=== PATIENT | female | born 1975 | race Caucasian/White ===

== ENCOUNTER 2017-07-07 18:21 | Emergency (ER) | payer SELFPAY ==
[2017-07-07 18:35] VITALS: BP 134/68
[2017-07-07] MEDS ORDERED: PREDNISONE 20 MG TABLET PO ONE (19:13)
[2017-07-07] MEDS ORDERED: IPRATROPIUM/ALBUTEROL 0.5-2.5 MG/3 ML AMPUL NEB ONE ×3 (19:13)
[2017-07-07 19:25] LABS: APPEARANCE,URINE SLIGHTLY-CLOUDY; BILIRUBIN,URINE SMALL (NEGATIVE); GLUCOSE, URINE NEGATIVE (NEGATIVE); KETONES,URINE TRACE mg/dL (NEGATIVE); LEUKOCYTE ESTERASE,URINE NEGATIVE (NEGATIVE); NITRITE,URINE POSITIVE (NEGATIVE); PROTEIN,URINE 100 mg/dL (NEGATIVE)
--- NOTE | 2017-07-07 20:16 | RADIOLOGY REPORT (SQ) ---
EXAM DESCRIPTION: CHEST PA/LAT COMPLETED DATE/TIME: 07/07/2017 8:01 pm REASON FOR STUDY: cough sob COMPARISON: None. EXAM PARAMETERS: NUMBER OF VIEWS: two views TECHNIQUE: Digital Frontal and Lateral radiographic views of the chest acquired. RADIATION DOSE: NA LIMITATIONS: none FINDINGS: LUNGS AND PLEURA: No opacities, masses or pneumothorax. No pleural effusion. MEDIASTINUM AND HILAR STRUCTURES: No masses or contour abnormalities. HEART AND VASCULAR STRUCTURES: Heart normal size. No evidence for failure. BONES: No acute findings. HARDWARE: None in the chest. OTHER: No other significant finding. IMPRESSION: NO SIGNIFICANT RADIOGRAPHIC FINDING IN THE CHEST. TECHNICAL DOCUMENTATION: JOB ID: [id number] [employer]- All Rights Reserved
[2017-07-07] MEDS ORDERED: ALBUTEROL SULFATE HFA (90 MCG/PUFF) 8 GM MDI (1 MDI/ER DISP) IH PRN (20:24)
[2017-07-07] MEDS ORDERED: CEPHALEXIN 500 MG CAPSULE PO ONE (20:24)
--- NOTE | 2017-07-07 20:25 | ER Document Report ---
ED General - General Chief Complaint: Congestion Stated Complaint: COUGH,CONGESTION,HEADACHE Time Seen by Provider: 07/07/17 19:09 Mode of Arrival: Ambulatory Information source: Patient Notes: 41-year-old smoker who was diagnosed with COPD in the past presents with complaints of shortness of breath wheezing whitish clear/greenish sputum. Patient also notes foul-smelling urine with burning on urination. Patient denies any fevers or chills. Denies any recent antibiotic or steroid use - HPI Onset: Yesterday Onset/Duration: Persistent Quality of pain: Burning Severity: Mild Pain Level: 1 Associated symptoms: Productive cough, Shortness of breath, Other Exacerbated by: Other - Urination Relieved by: Denies Similar symptoms previously: Yes Recently seen / treated by doctor: Yes - Related Data Allergies/Adverse Reactions: ciprofloxacin [From Cipro HC] Allergy (Verified 07/07/17 18:24) hydrocortisone [From Cipro HC] Allergy (Verified 07/07/17 18:24) Penicillins Allergy (Verified 07/07/17 18:24) Past Medical History - Social History Smoking Status: Current Every Day Smoker Cigarette use (# per day): Yes Chew tobacco use (# tins/day): No Smoking Education Provided: Yes - Patient counselled regarding cessation for 4 minutes Frequency of alcohol use: None Drug Abuse: None Family History: Reviewed & Not Pertinent Patient has suicidal ideation: No Patient has homicidal ideation: No Renal/ Medical History: Denies: Hx Peritoneal Dialysis Past Surgical History: Reports: Hx Tubal Ligation Review of Systems - Review of Systems Notes: REVIEW OF SYSTEMS: CONSTITUTIONAL : Denies fever, chills, or sweats. Denies recent illness. EENT: Denies eye, ear, throat, or mouth pain or symptoms. Denies nasal or sinus congestion or discharge. Denies throat, tongue, or mouth swelling or difficulty swallowing. CARDIOVASCULAR: Denies chest pain. Denies palpitations or racing or irregular heart beat. Denies ankle edema. RESPIRATORY: D admits to cough wheezing shortness of breath GASTROINTESTINAL: Denies abdominal pain or distention. Denies nausea, vomiting , or diarrhea. Denies blood in vomitus, stools, or per rectum. Denies black, tarry stools. Denies constipation. GENITOURINARY: Admits to burning on urination FEMALE GENITOURINARY: Denies vaginal bleeding, heavy or abnormal periods, irregular periods. Denies vaginal discharge or odor. MUSCULOSKELETAL: Denies back or neck pain or stiffness. Denies joint pain or swelling. SKIN: Denies rash, lesions or sores. HEMATOLOGIC : Denies easy bruising or bleeding. LYMPHATIC: Denies swollen, enlarged glands. NEUROLOGICAL: Denies confusion or altered mental status. Denies passing out or loss of consciousness. Denies dizziness or lightheadedness. Denies headache. Denies weakness or paralysis or loss of use of either side. Denies problems with gait or speech. Denies sensory loss, numbness, or tingling. Denies seizures. PSYCHIATRIC: Denies anxiety or stress. Denies depression, suicidal ideation, or homicidal ideation. ALL OTHER SYSTEMS REVIEWED AND NEGATIVE. PHYSICAL EXAMINATION: GENERAL: Well-appearing, well-nourished and in no acute distress. HEAD: Atraumatic, normocephalic. EYES: Pupils equal round and reactive to light, extraocular movements intact, conjunctiva are normal. ENT: Nares patent, oropharynx clear without exudates. Moist mucous membranes. NECK: Normal range of motion, supple without lymphadenopathy LUNGS: Coarse inspiratory expiratory wheezing all throughout no respiratory distress HEART: Regular rate and rhythm without murmurs ABDOMEN: Soft, nontender, nondistended abdomen. No guarding, no rebound. No masses appreciated. Female : deferred Musculoskeletal: Normal range of motion, no pitting or edema. No cyanosis. NEUROLOGICAL: Cranial nerves grossly intact. Normal speech, normal gait. Normal sensory, motor exams PSYCH: Normal mood, normal affect. SKIN: Warm, Dry, normal turgor, no rashes or lesions noted. Dictation was performed using [employer] voice recognition software Physical Exam - Vital signs Vitals: Temp Pulse Resp BP Pulse Ox 98.4 F 59 L 18 134/68 H 95 07/07/17 18:34 07/07/17 18:34 07/07/17 18:34 07/07/17 18:34 07/07/17 18:34 Course - Re-evaluation Re-evalutation: 07/07/17 20:44 Patient's urinalysis is consistent with a urinary tract infection, patient will be started on Keflex, she was given 3 DuoNeb's note significant improvement in her breathing, she does still have some wheezing which is to be expected, she will be discharged home with steroids and albuterol inhaler for home. Patient instructed to follow-up with primary care physician for reevaluation or to return immediately if there are any other concerns After performing a Medical Screening Examination, I estimate there is LOW risk for ACUTE CORONARY SYNDROME, PULMONARY EMBOLI, RESPIRATORY FAILURE, SEPSIS OR MENINGITIS, thus I consider the discharge disposition reasonable. I have reevaluated this patient multiple times and no significant life threatening changes are noted. The patient and I have discussed the diagnosis and risks, and we agree with discharging home with close follow-up. We also discussed returning to the Emergency Department immediately if new or worsening symptoms occur. We have discussed the symptoms which are most concerning (e.g., changing or worsening pain, trouble swallowing or breathing, neck stiffness, fever) that necessitate immediate return. - Vital Signs Vital signs: Temp Pulse Resp BP Pulse Ox 98.4 F 59 L 18 134/68 H 95 07/07/17 18:34 07/07/17 18:34 07/07/17 18:34 07/07/17 18:34 07/07/17 18:34 - Laboratory Laboratory results interpreted by me: 07/07/17 19:00 Urine Protein 100 H Urine Ketones TRACE H Urine Nitrite POSITIVE H Urine Bilirubin SMALL H Urine Urobilinogen 2.0 H Urine Ascorbic Acid 20 H - Diagnostic Test Radiology reviewed: Image reviewed, Reports reviewed - COPD exacerbation Discharge - Discharge Clinical Impression: COPD exacerbation UTI (urinary tract infection) Qualifiers: Urinary tract infection type: acute cystitis Hematuria presence: without hematuria Qualified Code(s): N30.00 - Acute cystitis without hematuria Condition: Stable Disposition: HOME, SELF-CARE Instructions: Chronic Obstructive Lung Disease ([facility]), Urinary Tract Infection ( [facility]) Additional Instructions: Follow up with your physician tomorrow for further care or return to the ED IMMEDIATELY if symptoms worsen or new concerns occur. If you cannot afford to follow up with your primary care physician a list of low cost clinics have been provided at the end of your discharge papers as well. Prescriptions: Cephalexin Monohydrate [Keflex 500 mg Capsule] 500 mg PO BID 5 Days capsule Prednisone [Deltasone 20 mg Tablet] 3 tab PO DAILY 5 Days tablet Forms: Return to Work
== END 2017-07-07 20:32 | disposition home or self-care (01) ==
LOC: ER 18:21
DX: J44.1 Chronic obstructive pulmonary disease with (acute) exacerbation (principal); N30.00 Acute cystitis without hematuria; R09.89 Other specified symptoms and signs involving the circulatory and respiratory systems; F17.210 Nicotine dependence, cigarettes, uncomplicated; Z88.3 Allergy status to other anti-infective agents; Z88.0 Allergy status to penicillin; Z98.51 Tubal ligation status
CPT/HCPCS: 99406; 94640 ×2; 99283; 81001; 87804; 71020; J7512; J3490; J7620

== ENCOUNTER 2017-07-15 02:23 | Emergency (ER) | payer SELFPAY ==
[2017-07-15] MEDS ORDERED: BENZONATATE 100 MG CAPSULE PO ONE (02:54)
[2017-07-15] MEDS ORDERED: NORMAL SALINE 1000 ML 1,000 ML IV ONE (02:54)
[2017-07-15 03:48] LABS: ABSOLUTE LYMPHOCYTES (AUTO) 2.3 10^3/uL (0.5-4.7); ABSOLUTE MONOCYTES (AUTO) 0.6 10^3/uL (0.1-1.4); ABSOLUTE NEUT (AUTO) 5.8 10^3/uL (1.7-8.2); BASOPHILS % (AUTO) 0.2 % (0-2); EOSINOPHILS % (AUTO) 0.2 % (0-6); HEMATOCRIT 41.3 % (36.0-47.0); HEMOGLOBIN 13.7 g/dL (12.0-15.5); LYMPHOCYTES % (AUTO) 26.5 % (13-45); MEAN CORPUSCULAR HEMOGLOBIN 28.4 pg (27.0-33.4); MEAN CORPUSCULAR HGB CONC 33.1 g/dL (32.0-36.0); MEAN CORPUSCULAR VOLUME 86 fl (80-97); PLATELET COUNT 393 10^3/uL (150-450); RED BLOOD COUNT 4.81 10^6/uL (3.72-5.28); RED CELL DISTRIBUTION WIDTH 13.6 % (11.5-14.0); SEGMENTED NEUTROPHILS % (AUTO) 66.1 % (42-78); TOTAL CELLS COUNTED % (AUTO) 100 %; WHITE BLOOD COUNT 8.7 10^3/uL (4.0-10.5)
--- NOTE | 2017-07-15 03:48 | ER Document Report ---
ED General - General Chief Complaint: Breathing Difficulty Stated Complaint: SHORTNESS OF BREATH Time Seen by Provider: 07/15/17 02:46 Notes: Patient is a 41-year-old female with a past medical history of COPD, continues to smoke, who presents with ongoing intermittent shortness of breath, coughing, and lightheadedness. Patient also reports that she has had diarrhea for the past 2 days since starting on antibiotics for possible urinary tract infection. She reports that she came in today due to concerns of persistent lightheadedness while at work. Nothing improves or worsens her symptoms. She denies any chest pain, syncope, fever, hemoptysis, unilateral leg swelling, history of DVT or pulmonary embolus, or any use of estrogen. She has not seen her primary care doctor regarding today's concerns. TRAVEL OUTSIDE OF THE [place] IN LAST 30 DAYS: No - Related Data Allergies/Adverse Reactions: ciprofloxacin [From Cipro HC] Allergy (Verified 07/07/17 18:24) hydrocortisone [From Cipro HC] Allergy (Verified 07/07/17 18:24) Penicillins Allergy (Verified 07/07/17 18:24) Past Medical History - General Information source: Patient - Social History Smoking Status: Current Every Day Smoker Chew tobacco use (# tins/day): No Frequency of alcohol use: Social Drug Abuse: None Family History: Reviewed & Not Pertinent Patient has suicidal ideation: No Patient has homicidal ideation: No Renal/ Medical History: Denies: Hx Peritoneal Dialysis Past Surgical History: Reports: Hx Tubal Ligation Review of Systems - Review of Systems Notes: Constitutional: Negative for fever. Positive for lightheadedness HENT: Negative for sore throat. Eyes: Negative for visual changes. Cardiovascular: Negative for chest pain. Respiratory: Positive for shortness of breath. Gastrointestinal: Negative for abdominal pain, vomiting or diarrhea. Genitourinary: Negative for dysuria. Musculoskeletal: Negative for back pain. Skin: Negative for rash. Neurological: Negative for headaches, weakness or numbness. 10 point ROS negative except as marked above and in HPI. Physical Exam - Vital signs Vitals: Temp Pulse Resp BP Pulse Ox 98.4 F 77 16 128/80 H 99 07/15/17 02:30 07/15/17 02:30 07/15/17 02:30 07/15/17 02:30 07/15/17 02:30 Interpretation: Normal Notes: PHYSICAL EXAMINATION: GENERAL: Well-appearing, well-nourished and in no acute distress. HEAD: Atraumatic, normocephalic. EYES: Pupils equal round and reactive to light, extraocular movements intact, sclera anicteric, conjunctiva are normal. ENT: nares patent, oropharynx clear without exudates. Moderately dry mucous membranes. NECK: Normal range of motion, supple without lymphadenopathy LUNGS: Breath sounds clear to auscultation bilaterally and equal. Faint expiratory wheezing no wheezes rales or rhonchi. HEART: Regular rate and rhythm without murmurs ABDOMEN: Soft, nontender, normoactive bowel sounds. No guarding, no rebound. No masses appreciated. EXTREMITIES: Normal range of motion, no pitting or edema. No cyanosis. NEUROLOGICAL: No focal neurological deficits. Moves all extremities spontaneously and on command. PSYCH: Normal mood, normal affect. SKIN: Warm, Dry, normal turgor, no rashes or lesions noted. Course - Re-evaluation Re-evalutation: 07/15/17 03:46 Patient presents with a clinical history and exam most consistent with an acute viral bronchitis. Patient is overall well in appearance without tachypnea, hypoxemia, tachycardia, or difficulty with ambulation. Breath sounds are clear bilaterally. No fever. Patient does have additional signs of upper respiratory infection including nasal congestion, sore throat, and sinus pressure. Patient did also complain of some lightheadedness, near syncope. Labs and chest x-ray were therefore obtained. EKG without any ischemic changes or abnormal findings. Labs unremarkable. Chest x-ray remains clear. At this time will discharge with return precautions and follow-up recommendations. Verbal discharge instructions given a the bedside and opportunity for questions given. Medication warnings reviewed. Patient is in agreement with this plan and has verbalized understanding of return precautions and the need for primary care follow-up in the next 24-72 hours. - Vital Signs Vital signs: Temp Pulse Resp BP Pulse Ox 98.4 F 77 16 128/80 H 99 07/15/17 02:30 07/15/17 02:30 07/15/17 02:30 07/15/17 02:30 07/15/17 02:30 - Laboratory Result Diagrams: 07/15/17 03:30 07/15/17 03:30 - Diagnostic Test Radiology reviewed: Image reviewed, Reports reviewed Radiology results interpreted by me: 07/15/17 03:45 Chest x-ray: No acute infiltrate or pneumothorax - EKG Interpretation by Me Additional EKG results interpreted by me: 07/15/17 03:45 Normal sinus rhythm. Rate 60. No ST elevations or depressions. QTC is 408. Discharge - Discharge Clinical Impression: Lightheadedness Acute bronchitis Qualifiers: Bronchitis organism: unspecified organism Qualified Code(s): J20.9 - Acute bronchitis, unspecified Condition: Good Disposition: HOME, SELF-CARE Additional Instructions: You were seen for symptoms most consistent with bronchitis. This can take up to 12 weeks to fully resolve. This is generally due to a viral infection. Please follow-up with your primary doctor in the next 2-3 days. Return if you develop worsening cough, vomiting, fever >100.4, pass out, begin coughing blood, or have any other symptoms that are concerning to you. Please use the medications prescribed today as directed. Prescriptions: Benzonatate [Tessalon Perles 100 mg Capsule] 100 mg PO Q8HP PRN #40 capsule PRN Reason:
[2017-07-15 03:51] LABS: ANION GAP 10 (5-19); BLOOD UREA NITROGEN 13 mg/dL (7-20); CALCIUM 9.7 mg/dL (8.4-10.2); CARBON DIOXIDE 27 mmol/L (22-30); CHLORIDE 107 mmol/L (98-107); GLUCOSE 95 mg/dL (75-110); POTASSIUM 3.9 mmol/L (3.6-5.0)
[2017-07-15 05:04] VITALS: BP 110/67
--- NOTE | 2017-07-15 08:07 | RADIOLOGY REPORT (SQ) ---
EXAM DESCRIPTION: CHEST SINGLE VIEW COMPLETED DATE/TIME: 07/15/2017 3:00 am REASON FOR STUDY: sob COMPARISON: 07/07/2017. EXAM PARAMETERS: NUMBER OF VIEWS: One view. TECHNIQUE: Single frontal radiographic view of the chest acquired. RADIATION DOSE: NA LIMITATIONS: None. FINDINGS: LUNGS AND PLEURA: No opacities, masses or pneumothorax. No pleural effusion. MEDIASTINUM AND HILAR STRUCTURES: No masses. Contour normal. HEART AND VASCULAR STRUCTURES: Heart normal in size. Normal vasculature. BONES: No acute findings. HARDWARE: None in the chest. OTHER: No other significant finding. IMPRESSION: NO ACUTE RADIOGRAPHIC FINDING IN THE CHEST. TECHNICAL DOCUMENTATION: JOB ID: [id number] [employer]- All Rights Reserved
--- NOTE | 2017-07-15 09:32 | EKG REPORT ---
SEVERITY:- NORMAL ECG - SINUS RHYTHM : Confirmed by: Ruby Tanner 15-Jul-2017 09:31:38
== END 2017-07-15 05:03 | disposition home or self-care (01) ==
LOC: ER 02:23
DX: J20.9 Acute bronchitis, unspecified (principal); J44.9 Chronic obstructive pulmonary disease, unspecified; F17.200 Nicotine dependence, unspecified, uncomplicated; Z88.6 Allergy status to analgesic agent; Z88.0 Allergy status to penicillin; Z98.51 Tubal ligation status
CPT/HCPCS: 93005; 99285; 96360; 36415; 85025; 80048; 71045; 93010; J7030

== ENCOUNTER 2017-12-24 12:38 | Emergency (ER) | payer SELFPAY ==
[2017-12-24 14:04] LABS: APPEARANCE,URINE SLIGHTLY-CLOUDY; BILIRUBIN,URINE NEGATIVE (NEGATIVE); CALCIUM OXALATE CRYSTALS,URINE MODERATE /HPF; COLOR,URINE YELLOW; GLUCOSE, URINE NEGATIVE (NEGATIVE); KETONES,URINE NEGATIVE (NEGATIVE); LEUKOCYTE ESTERASE,URINE NEGATIVE (NEGATIVE); NITRITE,URINE NEGATIVE (NEGATIVE); PROTEIN,URINE NEGATIVE (NEGATIVE); URINE SPECIFIC GRAVITY 1.019
[2017-12-24] MEDS ORDERED: PHENAZOPYRIDINE HCL 200 MG TABLET PO ONE (14:43)
--- NOTE | 2017-12-24 14:47 | ER Document Report ---
ED GI/ - General Chief Complaint: Urinary Problem Stated Complaint: FLANK PAIN Time Seen by Provider: 12/24/17 13:33 Mode of Arrival: Ambulatory Information source: Patient Notes: 41-year-old female presents to ED for complaint of urinary frequency and urgency. She states she has pain with urination since last night. She denies any vaginal discomfort or pelvic pain. TRAVEL OUTSIDE OF THE [place] IN LAST 30 DAYS: No - HPI Patient complains to provider of: Other - Urinary frequency urgency and burning with urination Onset: Yesterday Timing/Duration: Gradual Quality of pain: Burning Severity at maximum: Moderate Severity in ED: Mild, Moderate Pain Level: 3 Location: Other - Pain with urination Vaginal bleeding (Compared to normal period): None LMP: 2 weeks ago Associated symptoms: Urinary frequency, Urinary urgency, Other Exacerbated by: Other - Urination Relieved by: Denies Similar symptoms previously: Yes Recently seen / treated by doctor: No - Related Data Allergies/Adverse Reactions: ciprofloxacin [From Cipro HC] Allergy (Verified 12/24/17 12:39) hydrocortisone [From Cipro HC] Allergy (Verified 12/24/17 12:39) Penicillins Allergy (Verified 12/24/17 12:39) Past Medical History - General Information source: Patient - Social History Smoking Status: Current Every Day Smoker Cigarette use (# per day): Yes - Pack per day Chew tobacco use (# tins/day): No Smoking Education Provided: Yes - 4 minutes Frequency of alcohol use: None Drug Abuse: None Occupation: Police Chief Deputy Lives with: Friend Family History: Reviewed & Not Pertinent Patient has suicidal ideation: No Patient has homicidal ideation: No Pulmonary Medical History: Reports: None EENT Medical History: Reports: None Neurological Medical History: Reports: None Endocrine Medical History: Reports: Other - Hypoglycemia Renal/ Medical History: Reports: None Malignancy Medical History: Reports: None GI Medical History: Reports: None Musculoskeltal Medical History: Reports None Skin Medical History: Reports None Psychiatric Medical History: Reports: Hx Anxiety Traumatic Medical History: Reports: None Infectious Medical History: Reports: None Past Surgical History: Reports: Hx Tubal Ligation Review of Systems - Review of Systems Constitutional: No symptoms reported EENT: No symptoms reported Cardiovascular: No symptoms reported Respiratory: No symptoms reported Gastrointestinal: No symptoms reported Genitourinary: Burning, Frequency, Urgency Female Genitourinary: No symptoms reported Musculoskeletal: No symptoms reported Skin: No symptoms reported Hematologic/Lymphatic: No symptoms reported Neurological/Psychological: No symptoms reported -: Yes All other systems reviewed and negative Physical Exam - Vital signs Vitals: Temp Pulse Resp BP Pulse Ox 98.7 F 87 20 112/66 99 12/24/17 12:53 12/24/17 12:53 12/24/17 12:53 12/24/17 12:53 12/24/17 12:53 Interpretation: Normal - General General appearance: Appears well, Alert - HEENT Head: Normocephalic, Atraumatic Eyes: Normal Pupils: PERRL - Respiratory Respiratory status: No respiratory distress Chest status: Nontender Breath sounds: Normal Chest palpation: Normal - Cardiovascular Rhythm: Regular Heart sounds: Normal auscultation Murmur: No - Abdominal Inspection: Normal Distension: No distension Bowel sounds: Normal Tenderness: Nontender Organomegaly: No organomegaly - Back Back: Normal, Nontender - Extremities General upper extremity: Normal inspection, Nontender, Normal color, Normal ROM , Normal temperature General lower extremity: Normal inspection, Nontender, Normal color, Normal ROM , Normal temperature, Normal weight bearing. No: Kelly's sign - Neurological Neuro grossly intact: Yes Cognition: Normal Orientation: AAOx4 Astrid Coma Scale Eye Opening: Spontaneous [place] Coma Scale Verbal: Oriented [place] Coma Scale Motor: Obeys Commands [place] Coma Scale Total: 15 Speech: Normal Motor strength normal: LUE, RUE, LLE, RLE Sensory: Normal - Psychological Associated symptoms: Normal affect, Normal mood - Skin Skin Temperature: Warm Skin Moisture: Dry Skin Color: Normal Course - Re-evaluation Re-evalutation: 12/24/17 21:08 Urinary lab results discussed with patient. Patient has no vaginal discharge no pelvic pain. She states she just had burning with urination. Patient was encouraged to increase fluids and given a prescription for Pyridium. Patient instructed to follow-up with primary doctor and get a repeat urine in about a week. Urine was sent for culture. - Vital Signs Vital signs: Temp Pulse Resp BP Pulse Ox 98.4 F 71 16 117/75 98 12/24/17 15:24 12/24/17 15:24 12/24/17 15:24 12/24/17 15:24 12/24/17 15:24 - Laboratory Laboratory results interpreted by me: 12/24/17 13:25 Urine Urobilinogen 2.0 H Discharge - Discharge Clinical Impression: Pain with urination Condition: Stable Disposition: HOME, SELF-CARE Instructions: Family Physicians / Practices Additional Instructions: Was seen today for pain with urination. Your urine does not show a urinary tract infection at this time. I will send the urine for a culture to ensure that it is not positive. URINARY ANESTHETIC AGENT: You have been given a medication (Pyridium) for urinary tract discomfort. This medicine numbs the lining of the bladder and urethra, resulting in less pain, burning, and urgency. You may take it as needed, according to instructions. When the symptoms resolve, you can stop this medication (be sure to continue any other medications the doctor has given you). This medicine turns the urine a dark orange. It may stain underwear. Occasionally, it can cause nausea. Return for evaluation if there are any unexpected effects, such as itching, hives, or shortness of breath. FOLLOW-UP CARE: If you have been referred to a physician for follow-up care, call the physician s office for an appointment as you were instructed or within the next two days. If you experience worsening or a significant change in your symptoms, notify the physician immediately or return to the Emergency Department at any time for re-evaluation. Prescriptions: Phenazopyridine HCl [Pyridium] 200 mg PO TID #10 tablet Forms: Return to Work
[2017-12-24 15:25] VITALS: BP 117/75
== END 2017-12-24 15:24 | disposition home or self-care (01) ==
LOC: ER 12:38
DX: R30.0 Dysuria (principal); R35.0 Frequency of micturition; R39.15 Urgency of urination; F17.210 Nicotine dependence, cigarettes, uncomplicated; Z71.6 Tobacco abuse counseling; Z88.1 Allergy status to other antibiotic agents; Z88.0 Allergy status to penicillin; Z88.8 Allergy status to other drugs, medicaments and biological substances
CPT/HCPCS: 99406; 99284; 87086; 81025; 87088; 81001; J3490

== ENCOUNTER 2018-11-14 17:51 | Emergency (ER) | payer SELFPAY ==
[2018-11-14] MEDS ORDERED: NORMAL SALINE 1000 ML 1,000 ML IV ONE (18:30)
--- NOTE | 2018-11-14 18:34 | ER Document Report ---
ED Medical Screen (RME) - General Chief Complaint: Fever Stated Complaint: FEVER Time Seen by Provider: 11/14/18 18:18 Mode of Arrival: Ambulatory Information source: Patient TRAVEL OUTSIDE OF THE [place] IN LAST 30 DAYS: No - HPI Patient complains to provider of: FEVER Notes: 11/14/18 18:32 Patient here with complaints of fever. Patient is a IV heroin user. States that she is in the process of trying to get off and is been using just an affair 1 to maintain until she can get into rehab. She states that she shot up last evening. A few hours later she started to feel like she was getting a fever. She states that she had a temperature of 104 and then was in and out of consciousness for 4 to 6 hours. Fever seems to have resolved today. She denies any chest pain or shortness of breath but has had a cough for a while. She also complains of some swelling and pain to the right forearm. No abscess. She also fell and injured her posterior pelvis few days ago. Exam Nontoxic, no distress. Some mild swelling and tenderness to the volar aspect of the right forearm with no significant swelling or redness. No mass. Normal pulse and sensation distally. Lungs clear and equal throughout. Tachycardia. No murmur. Ecchymosis to the left posterior pelvic area. Plan CBC, CMP, lactic acid, blood culture, urine, urine culture, chest x-ray, pelvis x-ray, venous Doppler of the right upper extremity. Normal saline bolus. An initial examination was made on the patient as part of the triage process, and it was determined a more comprehensive evaluation was necessary. Initial labs were ordered and patient was transferred to another provider in the ED who assumed care and finished evaluation and plan. - Related Data Allergies/Adverse Reactions: ciprofloxacin [From Cipro HC] Allergy (Verified 11/14/18 17:52) hydrocortisone [From Cipro HC] Allergy (Verified 11/14/18 17:52) Penicillins Allergy (Verified 11/14/18 17:52) Past Medical History - Social History Chew tobacco use (# tins/day): No Frequency of alcohol use: Social Drug Abuse: Other Renal/ Medical History: Denies: Hx Peritoneal Dialysis Psychiatric Medical History: Reports: Hx Anxiety Past Surgical History: Reports: Hx Tubal Ligation Physical Exam - Vital signs Vitals: Temp Pulse Resp BP Pulse Ox 98.2 F 115 H 16 129/86 H 97 11/14/18 18:01 11/14/18 18:01 11/14/18 18:01 11/14/18 18:01 11/14/18 18:01 Course - Vital Signs Vital signs: Temp Pulse Resp BP Pulse Ox 98.2 F 115 H 16 129/86 H 97 11/14/18 18:01 11/14/18 18:01 11/14/18 18:01 11/14/18 18:01 11/14/18 18:01
--- NOTE | 2018-11-14 19:05 | RADIOLOGY REPORT (SQ) ---
EXAM DESCRIPTION: PELVIS AP COMPLETED DATE/TIME: 11/14/2018 6:55 pm REASON FOR STUDY: FALL COMPARISON: None. NUMBER OF VIEWS: One view TECHNIQUE: AP Pelvis LIMITATIONS: None. FINDINGS: MINERALIZATION: Normal. HIPS: No acute fracture or dislocation. No worrisome bone lesions. PELVIS AND SACRUM: No acute fracture or dislocation. No worrisome bone lesions. PUBIS AND ISCHIUM: No acute fracture. LOWER LUMBAR SPINE: No significant findings as visualized. SOFT TISSUES: No findings. OTHER: No other significant finding. IMPRESSION: No fracture identified. COMMENT: Pelvic fractures are often occult on plain radiographs. If strong clinical suspicion for f racture, recommend CT or MR. TECHNICAL DOCUMENTATION: JOB ID: [id number] [employer]- All Rights Reserved Reading location - IP/workstation name: [employer]
--- NOTE | 2018-11-14 19:10 | RADIOLOGY REPORT (SQ) ---
EXAM DESCRIPTION: CHEST 2 VIEWS COMPLETED DATE/TIME: 11/14/2018 6:55 pm REASON FOR STUDY: FEVER COMPARISON: 07/07/2017 TECHNIQUE: Frontal and lateral radiographic views of the chest acquired. NUMBER OF VIEWS: Two view. LIMITATIONS: None. FINDINGS: LUNGS AND PLEURA: No pneumothorax. No consolidation or pleural effusion. MEDIASTINUM AND HILAR STRUCTURES: Stable. HEART AND VASCULAR STRUCTURES: Stable. BONES: No acute findings. HARDWARE: None in the chest. OTHER: No other significant finding. IMPRESSION: NO ACUTE FINDINGS. TECHNICAL DOCUMENTATION: JOB ID: [id number] [employer]- All Rights Reserved Reading location - IP/workstation name: [email or web address]
[2018-11-14 19:28] LABS: ABSOLUTE EOSINOPHILS # (AUTO) 0.1 10^3/uL (0.0-0.6); ABSOLUTE LYMPHOCYTES (AUTO) 2.2 10^3/uL (0.5-4.7); ABSOLUTE MONOCYTES (AUTO) 0.5 10^3/uL (0.1-1.4); ABSOLUTE NEUT (AUTO) 5.8 10^3/uL (1.7-8.2); BASOPHILS % (AUTO) 0.3 % (0-2); EOSINOPHILS % (AUTO) 1.1 % (0-6); HEMATOCRIT 43.4 % (36.0-47.0); HEMOGLOBIN 14.1 g/dL (12.0-15.5); LYMPHOCYTES % (AUTO) 25.7 % (13-45); MEAN CORPUSCULAR HEMOGLOBIN 26.9 pg (27.0-33.4); MEAN CORPUSCULAR HGB CONC 32.4 g/dL (32.0-36.0); MEAN CORPUSCULAR VOLUME 83 fl (80-97); MONOCYTES % (AUTO) 5.8 % (3-13); PLATELET COUNT 305 10^3/uL (150-450); RED BLOOD COUNT 5.23 10^6/uL (3.72-5.28); RED CELL DISTRIBUTION WIDTH 15.6 % (11.5-14.0); SEGMENTED NEUTROPHILS % (AUTO) 67.1 % (42-78); TOTAL CELLS COUNTED % (AUTO) 100 %; WHITE BLOOD COUNT 8.6 10^3/uL (4.0-10.5)
[2018-11-14 19:30] LABS: APPEARANCE,URINE CLOUDY; BILIRUBIN,URINE NEGATIVE (NEGATIVE); CALCIUM OXALATE CRYSTALS,URINE TOO NUMEROUS TO CNT /HPF; COLOR,URINE AMBER; GLUCOSE, URINE NEGATIVE (NEGATIVE); KETONES,URINE NEGATIVE (NEGATIVE); LEUKOCYTE ESTERASE,URINE NEGATIVE (NEGATIVE); NITRITE,URINE NEGATIVE (NEGATIVE); PROTEIN,URINE NEGATIVE (NEGATIVE); URINE SPECIFIC GRAVITY 1.023
[2018-11-14 19:38] LABS: ALANINE AMINOTRANSFERASE 43 U/L (9-52); ALBUMIN 4.3 g/dL (3.5-5.0); ALKALINE PHOSPHATASE 97 U/L (38-126); ANION GAP 11 (5-19); ASPARTATE AMINO TRANSFERASE 48 U/L (14-36); BILIRUBIN,DIRECT 0.3 mg/dL (0.0-0.4); BILIRUBIN,TOTAL 0.5 mg/dL (0.2-1.3); BLOOD UREA NITROGEN 7 mg/dL (7-20); CALCIUM 9.4 mg/dL (8.4-10.2); CARBON DIOXIDE 28 mmol/L (22-30); CHLORIDE 103 mmol/L (98-107); GLUCOSE 91 mg/dL (75-110); POTASSIUM 3.6 mmol/L (3.6-5.0); SODIUM 141.8 mmol/L (137-145); TOTAL PROTEIN 8.3 g/dL (6.3-8.2)
[2018-11-14] MEDS ORDERED: CEFTRIAXONE 2 GM/D5W RTU 2 GM/50 ML RTUPB IV ONE (19:57)
--- NOTE | 2018-11-14 20:01 | RADIOLOGY REPORT (SQ) ---
EXAM DESCRIPTION: VENOUS UNILATERAL UPPER COMPLETED DATE/TIME: 11/14/2018 7:46 pm REASON FOR STUDY: RIGHT ARM PAIN COMPARISON: None. TECHNIQUE: Dynamic and static nesbitt scale and color images acquired of the right arm venous system. S elected spectral images acquired with additional compression and augmentation maneuvers. The contrala teral subclavian vein and internal jugular vein were also imaged. Images stored on PACS. LIMITATIONS: None. FINDINGS: INTERNAL JUGULAR VEIN: Normal phasicity, compression, augmentation. No visualized echogeni c material on nesbitt scale. No defects on color images. Comparison opposite side normal. SUBCLAVIAN VEIN: Normal compression, augmentation. No visualized echogenic material on nesbitt scale. No defects on color images. AXILLARY VEIN: Normal compression, augmentation. No visualized echogenic material on nesbitt scale. No d efects on color images. BRACHIAL VEIN: Normal compression, augmentation. No visualized echogenic material on nesbitt scale. No d efects on color images. BASILIC VEIN: Normal compression, augmentation. No visualized echogenic material on nesbitt scale. No de fects on color images. CEPHALIC VEIN: Normal compression, augmentation. No visualized echogenic material on nesbitt scale. No d efects on color images. OTHER: Radial and ulnar venous systems demonstrate no echogenic material grayscale. No defects on co samantha imaging. Normal augmentation. CONTRALATERAL SUBCLAVIAN VEIN AND INTERNAL JUGULAR VEIN: Normal phasicity, compression and augmentation. No visualized echogenic material on nesbitt scale. No de fects on color images. IMPRESSION: NO EVIDENCE DVT OR SVT RIGHT ARM. TECHNICAL DOCUMENTATION: JOB ID: [id number]- All Rights Reserved Reading location - IP/workstation name: [email or web address]
--- NOTE | 2018-11-14 20:03 | ER Document Report ---
ED General - General Chief Complaint: Fever Stated Complaint: FEVER Time Seen by Provider: 11/14/18 18:18 Mode of Arrival: Ambulatory Information source: Patient TRAVEL OUTSIDE OF THE [place] IN LAST 30 DAYS: No - HPI Patient complains to provider of: Fever, right forearm lump, tachycardia, flulike symptoms Onset: Yesterday Onset/Duration: Sudden Severity: Severe Pain Level: 4 Associated symptoms: Body/muscle aches, Chills, Fever Exacerbated by: Denies Relieved by: Denies Similar symptoms previously: No Recently seen / treated by doctor: No Notes: 42-year-old female with history of heroin addiction abuse says she shot up yesterday and blacked out for a few hours. Since then has had fevers up to 104 and flulike illness including generalized malaise and muscle aches. She denies adamantly having any chest pain or shortness of breath. She has a spot in her right forearm that she is concerned could be a blood clot. - Related Data Allergies/Adverse Reactions: ciprofloxacin [From Cipro HC] Allergy (Verified 11/14/18 17:52) hydrocortisone [From Cipro HC] Allergy (Verified 11/14/18 17:52) Penicillins Allergy (Verified 11/14/18 17:52) Past Medical History - General Information source: Patient - Social History Smoking Status: Current Every Day Smoker Chew tobacco use (# tins/day): No Frequency of alcohol use: Social Drug Abuse: Other Family History: Reviewed & Not Pertinent Patient has suicidal ideation: No Patient has homicidal ideation: No Renal/ Medical History: Denies: Hx Peritoneal Dialysis Psychiatric Medical History: Reports: Hx Anxiety Past Surgical History: Reports: Hx Tubal Ligation Review of Systems - Review of Systems Notes: Constitutional: Positive fevers and chills positive malaise. EENT: No eye redness. No eye pain. No ear pain. No sore throat. Cardiovascular: No chest pain. No palpitations. Respiratory: No cough. No shortness of breath. No respiratory distress. Gastrointestinal: No abdominal pain. No nausea, vomiting, or diarrhea. Genitourinary: Atraumatic. No lesions. No pain. No discharge. Musculoskeletal: Atraumatic. No swelling. No deformities. Positive myalgias Skin: No rash or lesions. Lymphatic: No swollen lymph nodes. Neurologic: No headache. No syncope. Psychiatric: No suicidal or homicidal ideation. Physical Exam - Vital signs Vitals: Temp Pulse Resp BP Pulse Ox 98.2 F 115 H 16 129/86 H 97 11/14/18 18:01 11/14/18 18:01 11/14/18 18:01 11/14/18 18:01 11/14/18 18:01 - Notes Notes: General: Well-developed, well-nourished. In no acute distress. Non-toxic appearing. Cardiac: Well-perfused. Regular rate and rhythm. No murmurs, rubs, or gallops. Pulmonary: No respiratory distress. No cyanosis. Bilateral lung fiels are clear to auscultation. Abdominal: Non-distended. Non-rigid. Bowels sounds are present in all four quadrants. No guarding or rebound. HEENT: Head is atraumatic. Conjunctivae not reddened. No tearing. PERRL. EOMI. Orbits atraumatic. No periorbital swelling or erythema. Oropharynx is without erythema, swelling, or exudates. Dry mucous membranes Neck: Supple. No adenopathy. No meningismus. Dermatologic: Warm with good turgor. No rash. Atraumatic. Chest: Atraumatic. No chest wall tenderness to palpation. Musculoskeletal: The right upper extremity is examined. There is a fibrotic area around 1 of the veins of the mid antecubital region. There is no erythema. No swelling. Questionable phlebitis. Genitourinary: Examination deferred Neurologic: No gross neurologic deficits. Psychiatric: Normal mood. Course - Re-evaluation Re-evalutation: 11/14/18 20:01 Patient's labs are normal. She is slightly tachycardic and does have some dry mucous membranes on exam today. Blood cultures have been drawn. She has no white count. 11/14/18 20:02 We are going give her some IV fluids hip and this will help with her tachycardia. Her blood cultures are drawn. I will give her some Rocephin here and discharge her home and have her return in 24 hours that we can recheck her and correlate with her blood cultures. 11/14/18 20:03 Also reassured to see that her lactic acid is normal. 11/14/18 21:09 Fluids are in. Heart rate is better. Blood pressure better. Will discharge patient know she needs to return 24 hours for recheck and blood culture check. - Vital Signs Vital signs: Temp Pulse Resp BP Pulse Ox 97.9 F 71 16 116/84 100 11/14/18 20:57 11/14/18 20:57 11/14/18 20:57 11/14/18 20:57 11/14/18 20:57 - Laboratory Result Diagrams: 11/14/18 18:40 11/14/18 18:40 Laboratory results interpreted by me: 11/14/18 11/14/18 11/14/18 18:40 18:40 18:40 MCH 26.9 L RDW 15.6 H AST 48 H Total Protein 8.3 H Urine Urobilinogen 2.0 H Discharge - Discharge Clinical Impression: Flu-like symptoms, History of intravenous drug abuse Fever Qualifiers: Fever type: unspecified Qualified Code(s): R50.9 - Fever, unspecified Condition: Good Disposition: HOME, SELF-CARE Instructions: Acetaminophen, Blood Test Information (OM), Fever (OM), Ibuprofen (General) (OM), Repeat Blood Test (OM) Additional Instructions: Continue to treat YOUR fevers at home with Tylenol and ibuprofen. You have been given an antibiotic and will protect to for the next 24 hours. Please be sure to return to emergency department in approximately 24 hours so that we can reassess your situation and check your blood cultures. If you get significantly worse symptoms or you start having intractable vomiting or any other concerning symptoms please return to the emergency department before 24 hours. Referrals: TAMIKO GOLDBERG PA-C [Emergency Provider] - Follow up tomorrow
[2018-11-14 21:00] VITALS: BP 116/84
== END 2018-11-14 21:18 | disposition home or self-care (01) ==
LOC: ER 17:51
DX: R50.9 Fever, unspecified (principal); F11.20 Opioid dependence, uncomplicated; R00.0 Tachycardia, unspecified; R53.81 Other malaise; M79.10 Myalgia, unspecified site; R29.898 Other symptoms and signs involving the musculoskeletal system; F17.200 Nicotine dependence, unspecified, uncomplicated; Z88.1 Allergy status to other antibiotic agents; Z88.0 Allergy status to penicillin
CPT/HCPCS: 99284; 96361; 96365; 36415; 87040; 87086; 85025; 80053; 81001; 83605; 93971; 71046; 72170; J7030; J0696

== ENCOUNTER 2019-05-22 17:47 | Inpatient (IN) | payer SELFPAY ==
[2019-05-22] MEDS ORDERED: NALOXONE HCL INJ 2 MG/2 ML DISP.SYRIN IV ONE ×2 (18:09→21:30)
[2019-05-22] MEDS ORDERED: RINGERS SOLUTION,LACTATED 1,000 ML IV ONE (18:09)
[2019-05-22 18:25] LABS: ABSOLUTE BASOPHILS # (AUTO) 0.1 10^3/uL (0.0-0.2); ABSOLUTE EOSINOPHILS # (AUTO) 0.2 10^3/uL (0.0-0.6); ABSOLUTE LYMPHOCYTES (AUTO) 3.3 10^3/uL (0.5-4.7); ABSOLUTE NEUT (AUTO) 5.3 10^3/uL (1.7-8.2); BASOPHILS % (AUTO) 0.6 % (0-2); EOSINOPHILS % (AUTO) 1.5 % (0-6); HEMATOCRIT 42.2 % (36.0-47.0); HEMOGLOBIN 14.1 g/dL (12.0-15.5); LYMPHOCYTES % (AUTO) 33.7 % (13-45); MEAN CORPUSCULAR HEMOGLOBIN 28.8 pg (27.0-33.4); MEAN CORPUSCULAR HGB CONC 33.4 g/dL (32.0-36.0); MEAN CORPUSCULAR VOLUME 86 fl (80-97); MONOCYTES % (AUTO) 10.5 % (3-13); PLATELET COUNT 436 10^3/uL (150-450); RED BLOOD COUNT 4.89 10^6/uL (3.72-5.28); RED CELL DISTRIBUTION WIDTH 14.9 % (11.5-14.0); SEGMENTED NEUTROPHILS % (AUTO) 53.7 % (42-78); TOTAL CELLS COUNTED % (AUTO) 100 %; WHITE BLOOD COUNT 9.9 10^3/uL (4.0-10.5)
[2019-05-22 18:46] LABS: ACETAMINOPHEN < 10 ug/mL (10-30); ALBUMIN 4.4 g/dL (3.5-5.0); ALCOHOL < 10 mg/dL (NONE DETECTED); ALKALINE PHOSPHATASE 83 U/L (38-126); ANION GAP 7 (5-19); ASPARTATE AMINO TRANSFERASE 30 U/L (14-36); BILIRUBIN,DIRECT 0.2 mg/dL (0.0-0.4); BILIRUBIN,TOTAL 0.4 mg/dL (0.2-1.3); BLOOD UREA NITROGEN 12 mg/dL (7-20); CALCIUM 9.3 mg/dL (8.4-10.2); CARBON DIOXIDE 31 mmol/L (22-30); CHLORIDE 102 mmol/L (98-107); GLUCOSE 89 mg/dL (75-110); POTASSIUM 4.4 mmol/L (3.6-5.0); SALICYLATE < 1.0 mg/dL (2.0-20.0); TOTAL PROTEIN 8.2 g/dL (6.3-8.2)
[2019-05-22 19:22] LABS: APPEARANCE,URINE CLEAR; BILIRUBIN,URINE NEGATIVE (NEGATIVE); COLOR,URINE STRAW; GLUCOSE, URINE NEGATIVE (NEGATIVE); KETONES,URINE NEGATIVE (NEGATIVE); LEUKOCYTE ESTERASE,URINE NEGATIVE (NEGATIVE); NITRITE,URINE NEGATIVE (NEGATIVE); PROTEIN,URINE NEGATIVE (NEGATIVE); URINE SPECIFIC GRAVITY 1.008; UROBILINOGEN,URINE NEGATIVE mg/dL (<2.0)
[2019-05-22 19:41] LABS: URINE AMPHETAMINES SCREEN UNCONFIRMED POSITIVE; URINE BARBITURATES SCREEN NEGATIVE; URINE BENZODIAZEPINES SCREEN NEGATIVE; URINE COCAINE SCREEN NEGATIVE; URINE MARIJUANA (THC) SCREEN NEGATIVE; URINE METHADONE SCREEN NEGATIVE; URINE PHENCYCLIDINE SCREEN NEGATIVE
[2019-05-22] MEDS ORDERED: NORMAL SALINE 500 ML with NALOXONE HCL 2 MG IV PRN ×6 (21:46→23:16)
[2019-05-22] MEDS ORDERED: NORMAL SALINE 1000 ML 1,000 ML IV PRN (21:53)
[2019-05-22] MEDS ORDERED: ENOXAPARIN SODIUM INJ 40 MG/0.4 ML DISP.SYRIN SUBCUT ONE (22:30)
[2019-05-22] MEDS ORDERED: NALOXONE HCL INJ 2 MG/2 ML DISP.SYRIN ONE (22:38)
[2019-05-22] MEDS ORDERED: NALOXONE HCL INJ 2 MG/2 ML DISP.SYRIN IV PRN (23:17)
--- NOTE | 2019-05-23 08:03 | CRITICAL CARE ADMISSION REPORT ---
HPI Date:: 05/22/19 Time:: 20:00 Reason for ICU Reason:: Heroin intoxication. Narcan drip. Low RR HPI: This patient is a 43 yo heroin addict who claims to use everyday. Obtained heroin from a new dealer so it may have been laced with another substance or have stronger potency. She is brought to the ED at first protecting her airway but having a labile mental status. She received doses of narcan before being converted to a drip. When seen in ED3, she was somewhat arousable, very sleepy with the same concerns ofd protecting her airway. Therefore a drip was started a nd she was placed in the ICU. When awake, if we ascertain that this is an accidental OD,which I think it is, then she can go home if she is otherwise stable, ambulatory, eating and drinking. History obtained from:: ED MD EMS records - Diagnosis/Plan (1) Heroin abuse Is this a current diagnosis for this admission?: Yes Plan: Chronic and the reason for her difficulties. Since she is so sleepy nothing else is known (2) Accidental overdose of heroin Qualifiers: Encounter type: initial encounter Qualified Code(s): T40.1X1A - Poisoning by heroin, accidental (unintentional), initial encounter Is this a current diagnosis for this admission?: Yes Plan: She is awake enough to protect airway and narcan is off. (3) Acute respiratory insufficiency Is this a current diagnosis for this admission?: Yes Plan: Resolved. RR is still 8-12. Past Medical History Pulmonary Medical History: Reports: Pneumonia Past Surgical History Past Surgical History: Reports: Tubal Ligation Social/Family History - Social History Smoking Status: Current Every Day Smoker Cigarettes Packs Per Day: 1 Number of Years Smokin Frequency of Alcohol Use: None Drugs: Heroin Hx Prescription Drug Abuse: No - Family History Family History: Reviewed & Not Pertinent - Medication/Allergies Home Medications: No Home Medications 05/22/19 Allergies/Adverse Reactions: ciprofloxacin [From Cipro HC] Allergy (Verified 11/14/18 17:52) hydrocortisone [From Cipro HC] Allergy (Verified 11/14/18 17:52) Penicillins Allergy (Verified 11/14/18 17:52) Review of Systems ROS unobtainable: Due to mental status Physical Exam Vital Signs: Temp Pulse Resp BP Pulse Ox 98.6 F 83 16 107/62 97 05/23/19 03:55 05/22/19 23:10 05/23/19 06:06 05/23/19 06:06 05/23/19 06:06 Intake & Output 05/22/19 05/23/19 05/24/19 06:59 06:59 06:59 Intake Total 1000 Output Total 1050 Balance -50 Weight 65.1 kg Weight/Height Weight 65.1 kg Height 5 ft 8 in General appearance: PRESENT: no acute distress, thin Head exam: PRESENT: atraumatic, normocephalic Eye exam: PRESENT: conjunctiva pink, EOMI, PERRLA. ABSENT: scleral icterus Ear exam: PRESENT: normal external ear exam Mouth exam: PRESENT: moist, tongue midline Respiratory exam: PRESENT: clear to auscultation serena, decreased breath sounds, unlabored Cardiovascular exam: PRESENT: RRR. ABSENT: diastolic murmur, rubs, systolic murmur GI/Abdominal exam: PRESENT: normal bowel sounds, soft. ABSENT: distended, guarding, mass, organolmegaly, rebound, tenderness Extremities exam: PRESENT: full ROM Musculoskeletal exam: PRESENT: normal inspection Neurological exam: PRESENT: altered Laboratory/Radiographs Laboratory Results: 05/22/19 17:56 05/22/19 17:56 05/22/19 05/22/19 05/22/19 17:56 17:56 17:56 WBC 9.9 RBC 4.89 Hgb 14.1 Hct 42.2 MCV 86 MCH 28.8 MCHC 33.4 RDW 14.9 H Plt Count 436 Seg Neutrophils % 53.7 Sodium 140.2 Potassium 4.4 Chloride 102 Carbon Dioxide 31 H Anion Gap 7 BUN 12 Creatinine 0.65 Est GFR ( Amer) > 60 Glucose 89 Calcium 9.3 Magnesium 2.0 Total Bilirubin 0.4 AST 30 Alkaline Phosphatase 83 Total Protein 8.2 Albumin 4.4 Serum HCG, Qual NEGATIVE Urine Color Urine Appearance Urine pH Ur Specific [place] Urine Protein Urine Glucose (UA) Urine Ketones Urine Blood Urine Nitrite Ur Leukocyte Esterase Urine WBC (Auto) 05/22/19 19:05 WBC RBC Hgb Hct MCV MCH MCHC RDW Plt Count Seg Neutrophils % Sodium Potassium Chloride Carbon Dioxide Anion Gap BUN Creatinine Est GFR ( Amer) Glucose Calcium Magnesium Total Bilirubin AST Alkaline Phosphatase Total Protein Albumin Serum HCG, Qual Urine Color STRAW Urine Appearance CLEAR Urine pH 8.0 Ur Specific [place] 1.008 Urine Protein NEGATIVE Urine Glucose (UA) NEGATIVE Urine Ketones NEGATIVE Urine Blood NEGATIVE Urine Nitrite NEGATIVE Ur Leukocyte Esterase NEGATIVE Urine WBC (Auto) 1 All labs, radiographs, diagnostic studies and EKGs were personally reviewed: Yes In addition, reports of radiographic and diagnostic studies were read: Yes Critical Time Critical Time (minutes): 35 -: The care of a critically ill patient is dynamic. This note represents a static moment in the admission process. orders and treatments may be given simulataneously and urgentl, and time is not access service representative of the treatment process. This patient requires Critical Care secondary to life threating organ or limb dysfunction. Without the need for Critical Care services, the patient is at risk for increasid mortality and morbidity.
[2019-05-23] MEDS ORDERED: ENOXAPARIN SODIUM INJ 40 MG/0.4 ML DISP.SYRIN SUBCUT SCH (10:00)
[2019-05-23 15:09] VITALS: BP 135/82
--- NOTE | 2019-05-23 15:34 | PDOC DISCHARGE SUMMARY ---
Impression - Admit/DC Date/PCP Admission Date/Primary Care Provider: 05/22/19 22:03 Discharge Date: 05/23/19 - Discharge Diagnosis (1) Heroin abuse Is this a current diagnosis for this admission?: Yes (2) Accidental overdose of heroin Is this a current diagnosis for this admission?: Yes (3) Acute respiratory insufficiency Is this a current diagnosis for this admission?: Yes (4) Accidental overdose Is this a current diagnosis for this admission?: Yes (5) Heroin abuse Is this a current diagnosis for this admission?: Yes - Assessment Summary: This pt is a 43 yo woman, a known heroin addict, who obtained heroin from a different dealer that had it cut with unknown substance but more than likely it was too strong. She responded to narcan boluses but ended up on a drip. Therefore an ICU admission. She has woken, is eating and walking about her room and ready for discharge. - Additional Information Resuscitation Status: Full Code Discharge Diet: As Tolerated, Regular Discharge Activity: Activity As Tolerated Referrals: LOCAL,NO [NO LOCAL MD] - Home Medications: No Home Medications 05/22/19 History of Present Illiness History of Present Illness: Heroin OD requiring Narcan drip. Now awake, non intentional Hospital Course Hospital Course: She came off the narcan lead mobile developer of 05/23 and has not needed any more. Is fully awake, eating and walking well Physical Exam Vital Signs: Temp Pulse Resp BP Pulse Ox 98.6 F 83 19 135/82 H 97 05/23/19 15:06 05/23/19 15:06 05/23/19 15:06 05/23/19 15:06 05/23/19 15:06 Intake & Output 05/22/19 05/23/19 05/24/19 06:59 06:59 06:59 Intake Total 1000 783 Output Total 1050 400 Balance -50 383 Weight 65.1 kg General appearance: PRESENT: no acute distress, well-developed, well-nourished Head exam: PRESENT: atraumatic, normocephalic Eye exam: PRESENT: conjunctiva pink, EOMI, PERRLA. ABSENT: scleral icterus Ear exam: PRESENT: normal external ear exam Mouth exam: PRESENT: moist, tongue midline Respiratory exam: PRESENT: clear to auscultation serena. ABSENT: rales, rhonchi, wheezes Cardiovascular exam: PRESENT: RRR. ABSENT: diastolic murmur, rubs, systolic murmur Pulses: PRESENT: normal dorsalis pedis pul Vascular exam: PRESENT: normal capillary refill GI/Abdominal exam: PRESENT: normal bowel sounds, soft. ABSENT: distended, guarding, mass, organolmegaly, rebound, tenderness Rectal exam: PRESENT: deferred Extremities exam: PRESENT: full ROM Musculoskeletal exam: PRESENT: ambulatory, full ROM, normal inspection Neurological exam: PRESENT: alert, awake, oriented to person, oriented to place, oriented to time, oriented to situation, CN II-XII grossly intact. ABSENT: motor sensory deficit Skin exam: PRESENT: dry, intact, warm. ABSENT: cyanosis, rash Results Laboratory Results: WBC 9.9 10^3/uL (4.0-10.5) 05/22/19 17:56 RBC 4.89 10^6/uL (3.72-5.28) 05/22/19 17:56 Hgb 14.1 g/dL (12.0-15.5) 05/22/19 17:56 Hct 42.2 % (36.0-47.0) 05/22/19 17:56 MCV 86 fl (80-97) 05/22/19 17:56 MCH 28.8 pg (27.0-33.4) 05/22/19 17:56 MCHC 33.4 g/dL (32.0-36.0) 05/22/19 17:56 RDW 14.9 % (11.5-14.0) H 05/22/19 17:56 Plt Count 436 10^3/uL (150-450) 05/22/19 17:56 Lymph % (Auto) 33.7 % (13-45) 05/22/19 17:56 [place] % (Auto) 10.5 % (3-13) 05/22/19 17:56 Eos % (Auto) 1.5 % (0-6) 05/22/19 17:56 Baso % (Auto) 0.6 % (0-2) 05/22/19 17:56 Absolute Neuts (auto) 5.3 10^3/uL (1.7-8.2) 05/22/19 17:56 Absolute Lymphs (auto) 3.3 10^3/uL (0.5-4.7) 05/22/19 17:56 Absolute Monos (auto) 1.0 10^3/uL (0.1-1.4) 05/22/19 17:56 Absolute Eos (auto) 0.2 10^3/uL (0.0-0.6) 05/22/19 17:56 Absolute Basos (auto) 0.1 10^3/uL (0.0-0.2) 05/22/19 17:56 Seg Neutrophils % 53.7 % (42-78) 05/22/19 17:56 Sodium 140.2 mmol/L (137-145) 05/22/19 17:56 Potassium 4.4 mmol/L (3.6-5.0) 05/22/19 17:56 Chloride 102 mmol/L (98-107) 05/22/19 17:56 Carbon Dioxide 31 mmol/L (22-30) H 05/22/19 17:56 Anion Gap 7 (5-19) 05/22/19 17:56 BUN 12 mg/dL (7-20) 05/22/19 17:56 Creatinine 0.65 mg/dL (0.52-1.25) 05/22/19 17:56 Est GFR ( Amer) > 60 (>60) 05/22/19 17:56 Est GFR (MDRD) Non-Af > 60 (>60) 05/22/19 17:56 Glucose 89 mg/dL (75-110) 05/22/19 17:56 Calcium 9.3 mg/dL (8.4-10.2) 05/22/19 17:56 Magnesium 2.0 mg/dL (1.6-2.3) 05/22/19 17:56 Total Bilirubin 0.4 mg/dL (0.2-1.3) 05/22/19 17:56 Direct Bilirubin 0.2 mg/dL (0.0-0.4) 05/22/19 17:56 Neonat Total Bilirubin Not Reportable 05/22/19 17:56 Neonat Direct Bilirubin Not Reportable 05/22/19 17:56 Neonat Indirect Bili Not Reportable 05/22/19 17:56 AST 30 U/L (14-36) 05/22/19 17:56 ALT 25 U/L (<35) 05/22/19 17:56 Alkaline Phosphatase 83 U/L (38-126) 05/22/19 17:56 Total Protein 8.2 g/dL (6.3-8.2) 05/22/19 17:56 Albumin 4.4 g/dL (3.5-5.0) 05/22/19 17:56 Serum HCG, Qual NEGATIVE (NEGATIVE) 05/22/19 17:56 Urine Color STRAW 05/22/19 19:05 Urine Appearance CLEAR 05/22/19 19:05 Urine pH 8.0 (5.0-9.0) 05/22/19 19:05 Ur Specific [place] 1.008 05/22/19 19:05 Urine Protein NEGATIVE mg/dL (NEGATIVE) 05/22/19 19:05 Urine Glucose (UA) NEGATIVE mg/dL (NEGATIVE) 05/22/19 19:05 Urine Ketones NEGATIVE mg/dL (NEGATIVE) 05/22/19 19:05 Urine Blood NEGATIVE (NEGATIVE) 05/22/19 19:05 Urine Nitrite NEGATIVE (NEGATIVE) 05/22/19 19:05 Urine Bilirubin NEGATIVE (NEGATIVE) 05/22/19 19:05 Urine Urobilinogen NEGATIVE mg/dL (<2.0) 05/22/19 19:05 Ur Leukocyte Esterase NEGATIVE (NEGATIVE) 05/22/19 19:05 Urine WBC (Auto) 1 /HPF 05/22/19 19:05 Squamous Epi Cells Auto 2 /HPF 05/22/19 19:05 Urine Ascorbic Acid NEGATIVE (NEGATIVE) 05/22/19 19:05 Salicylates < 1.0 mg/dL (2.0-20.0) L 05/22/19 17:56 Urine Opiates Screen UNCONFIRMED POSITIVE 05/22/19 19:05 Urine Methadone Screen NEGATIVE 05/22/19 19:05 Acetaminophen < 10 ug/mL (10-30) L 05/22/19 17:56 Ur Barbiturates Screen NEGATIVE 05/22/19 19:05 Ur Phencyclidine Scrn NEGATIVE 05/22/19 19:05 Ur Amphetamines Screen UNCONFIRMED POSITIVE 05/22/19 19:05 U Benzodiazepines Scrn NEGATIVE 05/22/19 19:05 Urine Cocaine Screen NEGATIVE 05/22/19 19:05 U Marijuana (THC) Screen NEGATIVE 05/22/19 19:05 Serum Alcohol < 10 mg/dL (NONE DETECTED) 05/22/19 17:56 Plan Health Concerns: Obvious heroin use which has been for years Plan of Treatment: Stop by attending NA meetings Goals: Abstinence and sobriety. Stroke Is this a Stroke Patient?: No Acute Heart Failure - Is this a Heart Failure Patient?: No
--- NOTE | 2019-05-23 23:21 | EKG REPORT ---
SEVERITY:- NORMAL ECG - SINUS RHYTHM : Confirmed by: Ruby Tanner 23-May-2019 23:20:49
== END 2019-05-23 15:30 | disposition home or self-care (01) | DRG 918 ==
LOC: ER 17:47 → EH 22:03 → ICU 23:00
PROVIDERS: ADMIT Anesthesiology; ATTEND Anesthesiology
DX: T40.1X1A Poisoning by heroin, accidental (unintentional), initial encounter (principal); F11.229 Opioid dependence with intoxication, unspecified; J70.8 Respiratory conditions due to other specified external agents; R06.89 Other abnormalities of breathing; F17.210 Nicotine dependence, cigarettes, uncomplicated; Y92.89 Other specified places as the place of occurrence of the external cause
CPT/HCPCS: 36415; 80053; 80307; 81001; 83735; 84703; 85025; 93005; 93010; 96361; 96374; 96376; 99285; J1650; J2310; J7030; J7040; J7120

== ENCOUNTER 2019-06-12 16:56 | Inpatient (IN) | payer SELFPAY ==
[2019-06-12] MEDS ORDERED: DIPH/PERTUSS(ACELL)/TETANUS VAC/PF 0.5 ML SYR (>=10YO) IM ONE (17:07)
[2019-06-12] MEDS ORDERED: ACETAMINOPHEN 325 MG TABLET PO ONE (17:07)
[2019-06-12] MEDS ORDERED: VANCOMYCIN HCL INJ 1000 MG VIAL IV ONE (17:08)
--- NOTE | 2019-06-12 17:11 | ER Document Report ---
ED Medical Screen (RME) - General Chief Complaint: Abscess Stated Complaint: ABSCESS/RIGHT WRIST,HAND, FEVER Time Seen by Provider: 06/12/19 17:02 Mode of Arrival: Wheelchair Information source: Patient Notes: Patient presents with right hand and wrist pain and swelling for the past week. Patient is an IV drug user and does admit to injecting in the right wrist last week. Patient reports subjective fever at home. Patient with erythema swelling and an area of fluctuance worrisome for abscess to the wrist area. Patient swelling extends to the upper arm. I have greeted and performed a rapid initial assessment of this patient. A comprehensive ED assessment and evaluation of the patient, analysis of test results and completion of the medical decision making process will be conducted by additional ED providers. TRAVEL OUTSIDE OF THE [place] IN LAST 30 DAYS: No - Related Data Allergies/Adverse Reactions: ciprofloxacin [From Cipro HC] Allergy (Verified 06/12/19 17:04) hydrocortisone [From Cipro HC] Allergy (Verified 06/12/19 17:04) Penicillins Allergy (Verified 06/12/19 17:04) Past Medical History - Social History Chew tobacco use (# tins/day): No Frequency of alcohol use: None Drug Abuse: Heroin, Methamphetamine Pulmonary Medical History: Reports: Hx Pneumonia Renal/ Medical History: Denies: Hx Peritoneal Dialysis Psychiatric Medical History: Reports: Hx Anxiety Past Surgical History: Reports: Hx Tubal Ligation Physical Exam - Vital signs Vitals: Temp Pulse Resp BP Pulse Ox 99 F 74 16 114/65 96 06/12/19 17:03 06/12/19 17:03 06/12/19 17:03 06/12/19 17:03 06/12/19 17:03 - General General appearance: Alert Notes: Right upper extremity tenderness and swelling, significant swelling to right wrist and hand with pointing abscess over the dorsum of the right wrist. Course - Vital Signs Vital signs: Temp Pulse Resp BP Pulse Ox 99 F 74 16 114/65 96 06/12/19 17:03 06/12/19 17:03 06/12/19 17:03 06/12/19 17:03 06/12/19 17:03
--- NOTE | 2019-06-12 17:40 | RADIOLOGY REPORT (SQ) ---
EXAM DESCRIPTION: HAND RIGHT 3 VIEWS COMPLETED DATE/TIME: 06/12/2019 5:21 pm REASON FOR STUDY: r hand/wrist swelling, hx iv drug use COMPARISON: None. EXAM PARAMETERS: NUMBER OF VIEWS: Three views. TECHNIQUE: AP, lateral and oblique radiographic images acquired of the right hand. LIMITATIONS: None. FINDINGS: MINERALIZATION: Normal. BONES: No acute fracture or dislocation. No worrisome bone lesions. JOINTS: No effusions. SOFT TISSUES: Diffuse soft tissue swelling is seen of the wrist and hand. No retained radiopaque for eign body is demonstrated. OTHER: No other significant finding. IMPRESSION: Diffuse soft tissue swelling without underlying osseous injury or demonstrated retained radiopaque foreign body. TECHNICAL DOCUMENTATION: JOB ID: [id number] [employer]- All Rights Reserved Reading location - IP/workstation name: [email or web address]
[2019-06-12] MEDS ORDERED: KETAMINE HCL INJ 500 MG/10 ML VIAL IV ONE (17:51)
--- NOTE | 2019-06-12 17:58 | ER Document Report ---
ED General <SERAFIN FIELD - Last Filed: 06/12/19 18:51> - General Mode of Arrival: Wheelchair TRAVEL OUTSIDE OF THE [place] IN LAST 30 DAYS: No <KATARINA HOLT - Last Filed: 06/12/19 20:01> - General Chief Complaint: Abscess Stated Complaint: ABSCESS/RIGHT WRIST,HAND, FEVER Time Seen by Provider: 06/12/19 17:02 - HPI Notes: Patient is a 43-year-old female with history of IV drug abuse, hepatitis c, and heart murmur who presents complaining of pain, swelling, possible infection to the site that she injected on her right wrist a little over a week ago. Patient states that she has been having swelling and significant pain to her entire right upper extremity since then along with fever and chills. Patient states that she started having cough, hoarseness of her voice, some chest pain that began yesterday. She has been urinating normally and having normal bowel movements. Denies any headache, neck pain, sore throat, palpitations, syncope, shortness of breath, wheeze, dyspnea, abdominal pain, nausea/vomiting/diarrhea, urinary retention, dysuria, hematuria. (KATARINA HOLT) - Related Data Allergies/Adverse Reactions: ciprofloxacin [From Cipro HC] Allergy (Verified 06/12/19 17:04) hydrocortisone [From Cipro HC] Allergy (Verified 06/12/19 17:04) Penicillins Allergy (Verified 06/12/19 17:04) Past Medical History - General Information source: Patient - Social History Smoking Status: Current Every Day Smoker Chew tobacco use (# tins/day): No Frequency of alcohol use: None Drug Abuse: Heroin, Methamphetamine Family History: Reviewed & Not Pertinent Patient has suicidal ideation: No Patient has homicidal ideation: No Pulmonary Medical History: Reports: Hx Pneumonia Renal/ Medical History: Denies: Hx Peritoneal Dialysis Psychiatric Medical History: Reports: Hx Anxiety Past Surgical History: Reports: Hx Tubal Ligation <KATARINA HOLT - Last Filed: 06/12/19 20:01> Review of Systems - Review of Systems -: Yes All other systems reviewed and negative <KATARINA HOLT - Last Filed: 06/12/19 20:01> Physical Exam <SERAFIN FIELD - Last Filed: 06/12/19 18:51> <KATARINA HOLT - Last Filed: 06/12/19 20:01> - Vital signs Vitals: Temp Pulse Resp BP Pulse Ox 99 F 74 16 114/65 96 06/12/19 17:03 06/12/19 17:03 06/12/19 17:03 06/12/19 17:03 06/12/19 17:03 - Notes Notes: Addendum patient was initially seen by mid-level provider and evaluated by me she presents with pain swelling her right hand for 1 week after injecting. She does report some tactile fevers. Exam she is got a large abscess over the dorsum of the hand with red streaks going up the arm. Patient will need incision and drainage. With a history of IV drug abuse and worried about adequate pain control so she will be sedated with ketamine. Benefits of the procedure were explained to the patient (SERAFIN FIELD) PHYSICAL EXAMINATION: GENERAL: Well-appearing, well-nourished and in no acute resp distress. Pt appears uncomfortable with her RUE and tearful. HEAD: Atraumatic, normocephalic. EYES: Pupils equal round and reactive to light, extraocular movements intact, sclera anicteric, conjunctiva are normal. ENT: Nares patent and without discharge. oropharynx clear without exudates. No tonsilar hypertrophy or erythema. Moist mucous membranes. NECK: Normal range of motion, supple without lymphadenopathy LUNGS: Breath sounds clear to auscultation bilaterally and equal. No wheezes rales or rhonchi. HEART: Regular rate and rhythm with murmur noted ABDOMEN: Soft, nontender, nondistended abdomen. No guarding, no rebound. No rmal bowel sounds present. No CVA tenderness bilaterally. Musculoskeletal: RUE: there is significant erythema/swelling to the RUE, worse at the wrist with fluctuant abscess present to the posterior wrist. The hand is also swollen, indurated, and erythemic. The RUE in entirety is warm. She also has tenderness to axillar and medial upper arm in area of suspected lymph nodes. Extremities: See above. No other cyanosis, clubbing, or edema b/l. Peripheral pulses 2+. Capillary refill less than 3 seconds. NEUROLOGICAL: Cranial nerves grossly intact. Normal speech, normal gait. Normal sensory, motor exams PSYCH: Normal mood, normal affect. SKIN: see above (KATARINA HOLT) Course - Laboratory Result Diagrams: 06/12/19 18:13 06/12/19 18:13 <SERAFIN FIELD - Last Filed: 06/12/19 18:51> - Laboratory Result Diagrams: 06/12/19 18:13 06/12/19 18:13 <KATARINA HOLT - Last Filed: 06/12/19 20:01> - Re-evaluation Re-evalutation: 06/12/19 17:58 Dr. Field was consulted immediately after my evaluation. We will perform I&D and get labs/imaging to further evaluate. We will perform I&D with ketamine sedation. Ultimate plan is admission. IV antibiotics ordered. 06/12/19 19:34 We did not need to perform ketamine sedation at this time. Local anesthetic with sensorcaine/lido combo provided with 100mg of fentanyl. Incision and drainage was performed successfully without any complications with packing placed. Wound culture was obtained. Wound dressing was applied. Patient is an afebrile, well-hydrated, 43-year-old female who presents with an extensive cellulitis to the right upper extremity with cough and chest pain. Vitals are acceptable. Patient is currently nontoxic-appearing. Labs are acceptable with an 11,000 white count. Cardiac work-up unremarkable thus far. IV antibiotics have been initiated. Patient we will place call to hospitalist for admission. 06/12/19 19:58 Dr. Angel accepted pt for admit. Dr. Field wanted flagyl added which has been ordered. (KATARINA HOLT) - Vital Signs Vital signs: Temp Pulse Resp BP Pulse Ox 99 F 74 22 H 110/68 99 06/12/19 17:03 06/12/19 17:03 06/12/19 19:46 06/12/19 19:46 06/12/19 19:46 - Laboratory Laboratory results interpreted by me: 06/12/19 06/12/19 06/12/19 18:13 18:13 18:13 WBC 11.0 H Hgb 11.9 L Hct 35.1 L RDW 15.0 H Carbon Dioxide 31 H Lactic Acid (Sepsis) 0.6 L Procedures - Incision and Drainage Right Wrist Type: Simple Anesthetic type: 1% Lidocaine, 0.25% Bupivacaine mL's of anesthetic: 5 Blade size: 11 I&D procedure: Chlorprep applied, Iodoform packing placed, Sterile dressing applied Incision Method: Incision made by scalpel Amount/type of drainage: moderate purulent <KATARINA HOLT - Last Filed: 06/12/19 20:01> Discharge <SERAFIN FIELD - Last Filed: 06/12/19 18:51> - Discharge Admitting Provider: Jeanne (Hospitalist) Unit Admitted: Medical Floor <KATARINA HOLT - Last Filed: 06/12/19 20:01> - Discharge Clinical Impression: Atypical chest pain, Cellulitis of right arm Injection site abscess Qualifiers: Encounter type: initial encounter Qualified Code(s): T80.29XA - Infection following other infusion, transfusion and therapeutic injection, initial encounter Condition: Stable Disposition: ADMITTED INPATIENT
[2019-06-12] MEDS ORDERED: BUPIVACAINE HCL 0.25% /EPINEPHRINE INJ/PF 30 ML SDV INJ ONE (18:12)
[2019-06-12] MEDS ORDERED: CEFTRIAXONE 1 GM/D5W RTU 1 GM/50 ML RTUPB IV ONE (18:30)
[2019-06-12 18:34] LABS: ABSOLUTE EOSINOPHILS # (AUTO) 0.2 10^3/uL (0.0-0.6); ABSOLUTE LYMPHOCYTES (AUTO) 2.4 10^3/uL (0.5-4.7); ABSOLUTE MONOCYTES (AUTO) 0.8 10^3/uL (0.1-1.4); ABSOLUTE NEUT (AUTO) 7.5 10^3/uL (1.7-8.2); BASOPHILS % (AUTO) 0.3 % (0-2); EOSINOPHILS % (AUTO) 1.7 % (0-6); HEMATOCRIT 35.1 % (36.0-47.0); HEMOGLOBIN 11.9 g/dL (12.0-15.5); LYMPHOCYTES % (AUTO) 22.3 % (13-45); MEAN CORPUSCULAR HEMOGLOBIN 28.8 pg (27.0-33.4); MEAN CORPUSCULAR HGB CONC 33.8 g/dL (32.0-36.0); MEAN CORPUSCULAR VOLUME 85 fl (80-97); MONOCYTES % (AUTO) 7.6 % (3-13); PLATELET COUNT 441 10^3/uL (150-450); RED BLOOD COUNT 4.13 10^6/uL (3.72-5.28); SEGMENTED NEUTROPHILS % (AUTO) 68.1 % (42-78); TOTAL CELLS COUNTED % (AUTO) 100 %
[2019-06-12] MEDS ORDERED: VANCOMYCIN HCL INJ 1000 MG VIAL ONE (18:41)
[2019-06-12] MEDS ORDERED: VANCOMYCIN HCL INJ 500 MG VIAL ONE (18:41)
[2019-06-12 19:02] LABS: ALBUMIN 3.9 g/dL (3.5-5.0); ALKALINE PHOSPHATASE 113 U/L (38-126); ANION GAP 9 (5-19); ASPARTATE AMINO TRANSFERASE 20 U/L (14-36); BILIRUBIN,DIRECT 0.2 mg/dL (0.0-0.4); BILIRUBIN,TOTAL 0.3 mg/dL (0.2-1.3); BLOOD UREA NITROGEN 8 mg/dL (7-20); CALCIUM 8.9 mg/dL (8.4-10.2); CARBON DIOXIDE 31 mmol/L (22-30); CHLORIDE 100 mmol/L (98-107); GLUCOSE 85 mg/dL (75-110); POTASSIUM 3.9 mmol/L (3.6-5.0); TOTAL PROTEIN 7.9 g/dL (6.3-8.2)
--- NOTE | 2019-06-12 19:10 | RADIOLOGY REPORT (SQ) ---
EXAM DESCRIPTION: CHEST SINGLE VIEW COMPLETED DATE/TIME: 06/12/2019 6:57 pm REASON FOR STUDY: CP, IV drug user, fever COMPARISON: 11/14/2018. EXAM PARAMETERS: NUMBER OF VIEWS: One view. TECHNIQUE: Single frontal radiographic view of the chest acquired. RADIATION DOSE: NA LIMITATIONS: None. FINDINGS: LUNGS AND PLEURA: No opacities, masses or pneumothorax. No pleural effusion. MEDIASTINUM AND HILAR STRUCTURES: No masses. Contour normal. HEART AND VASCULAR STRUCTURES: Heart normal in size. Normal vasculature. BONES: No acute findings. HARDWARE: None in the chest. OTHER: No other significant finding. IMPRESSION: NO ACUTE RADIOGRAPHIC FINDING IN THE CHEST. TECHNICAL DOCUMENTATION: JOB ID: [id number] [employer]- All Rights Reserved Reading location - IP/workstation name: [email or web address]
[2019-06-12] MEDS ORDERED: FENTANYL CITRATE INJ/PF 100 MCG/2 ML AMPUL ONE (19:25)
[2019-06-12] MEDS ORDERED: FENTANYL CITRATE INJ/PF 100 MCG/2 ML AMPUL IV ONE (19:27)
[2019-06-12] MEDS ORDERED: METRONIDAZOLE 500 MG/NS RTU 500 MG/100 ML RTUPB IV ONE (20:15)
--- NOTE | 2019-06-12 20:31 | PDOC H&P ---
History of Present Illness Admission Date/PCP: 06/12/19 20:12 No local PCP Patient complains of: Painful swelling right hand, wrist and forearm History of Present Illness: CRISTAL FIELD is a 43 year old female who presented to the emergency room with a one-week history of swelling and pain in her right upper extremity. She admits that a week ago she developed an area of redness, pain and swelling on her right wrist at a recent heroin injection site. The redness, pain and swelling have gradually increased to involve her right hand, wrist and distal forearm. She describes the pain as a constant throbbing pressure in her right wrist and hand without radiation. The pain is worsened by attempted use of the hand and having the hand in a dependent position. The pain is partially reliev ed by elevation of the hand and wrist. Associated with the increased swelling she has noted subjective fever with chills for the last 2 days. She also notes an accompanying hoarseness with laryngitis and a nonproductive cough with sharp chest pains over the last 24 hours. She denies other associated or accompanying signs and symptoms. She admits prior similar episodes due to infection of heroi n injection sites. She has not identified any additional aggravating or ameliorating factors for her right upper extremity pain. The emergency room she was found to have an abscess of the right wrist which was incised and drained. Patient was started on IV antibiotics, after cultures were obtained, and was subsequently admitted to the hospital for further evaluation and treatment. Past Medical History Cardiac Medical History: Denies: Coronary Artery Disease, Hypertension Pulmonary Medical History: Reports: Pneumonia Denies: Asthma, Chronic Obstructive Pulmonary Disease (COPD) EENT Medical History: Denies: Cataracts, Ears - Hearing aids Neurological Medical History: Denies: Hemorrhagic CVA, Ischemic CVA, Multiple Sclerosis, Seizures Endocrine Medical History: Denies: Diabetes Mellitus Type 1, Diabetes Mellitus Type 2, Hyperthyroidism, Hypothyroidism Renal/ Medical History: Denies: Chronic Kidney Disease, Nephrolithiasis Malignancy Medical History: Reports: None GI Medical History: Denies: Cirrhosis, Hepatitis Musculoskeltal Medical History: Denies: Arthritis, Gout Skin Medical History: Denies: Eczema, Psoriasis Psychiatric Medical History: Reports: Substance Abuse, Tobacco Dependency Denies: Alcohol Dependency Traumatic Medical History: Reports: None Hematology: Denies: Anemia, Bleeding Tendencies Infectious Medical History: Reports: None Past Surgical History Past Surgical History: Reports: Tubal Ligation Social History Information Source: Patient Lives with: Alone Smoking Status: Current Every Day Smoker Electronic Cigarette use?: No Frequency of Alcohol Use: None Hx Recreational Drug Use: Yes Drugs: Heroin Hx Prescription Drug Abuse: No - Advance Directive Resuscitation Status: Full Code Surrogate healthcare decision maker:: Sunshine Cortes Family History Family History: Malignancy. denies: CAD, DM, Hypertension Parental Family History Reviewed: Yes Children Family History Reviewed: No Sibling(s) Family History Reviewed.: Yes Medication/Allergy Home Medications: No Home Medications 05/22/19 Allergies/Adverse Reactions: ciprofloxacin [From Cipro HC] Allergy (Verified 06/12/19 17:04) hydrocortisone [From Cipro HC] Allergy (Verified 06/12/19 17:04) Penicillins Allergy (Verified 06/12/19 17:04) Review of Systems Constitutional: PRESENT: as per HPI, chills, fever(s) Eyes: ABSENT: visual disturbances, other - Eye pain Ears: ABSENT: hearing changes, other - Ear pain Nose, Mouth, and Throat: PRESENT: as per HPI, sore throat, other - Laryngitis. ABSENT: mouth pain Cardiovascular: PRESENT: as per HPI, chest pain - Sharp pain with cough. ABSENT: palpitations Respiratory: PRESENT: as per HPI, cough. ABSENT: dyspnea, sputum Gastrointestinal: ABSENT: abdominal pain, constipation, diarrhea, nausea, vomiting Genitourinary: ABSENT: dysuria, hematuria Musculoskeletal: ABSENT: back pain, joint swelling, muscle weakness Integumentary: PRESENT: as per HPI, wounds - Right upper extremity as per HPI. ABSENT: diaphoresis, pruritus, rash Neurological: ABSENT: confusion, convulsions, focal weakness, memory loss, syncope Psychiatric: ABSENT: anxiety, depression Endocrine: ABSENT: cold intolerance, heat intolerance Hematologic/Lymphatic: ABSENT: easy bleeding, easy bruising Allergic/Immunologic: ABSENT: seasonal rhinorrhea Physical Exam Vital Signs: Temp Pulse Resp BP Pulse Ox 99 F 74 11 L 115/71 98 06/12/19 17:03 06/12/19 17:03 06/12/19 20:01 06/12/19 20:01 06/12/19 20:01 Intake & Output 06/10/19 06/11/19 06/12/19 23:59 23:59 23:59 Intake Total 50 Balance 50 Weight 74.9 kg General appearance: PRESENT: no acute distress, cooperative Head exam: PRESENT: atraumatic, normocephalic Eye exam: PRESENT: conjunctiva pink. ABSENT: conjunctival injection, scleral icterus Ear exam: PRESENT: normal external ear exam. ABSENT: bleeding, drainage Mouth exam: PRESENT: dry mucosa, neck supple Neck exam: ABSENT: thyromegaly, tracheal deviation Respiratory exam: PRESENT: clear to auscultation serena, symmetrical, unlabored Cardiovascular exam: PRESENT: RRR. ABSENT: clicks, gallop, rubs Pulses: PRESENT: normal carotid pulses, normal dorsalis pedis pul Vascular exam: PRESENT: normal capillary refill. ABSENT: pallor GI/Abdominal exam: PRESENT: normal bowel sounds, soft Rectal exam: PRESENT: deferred Extremities exam: ABSENT: joint swelling, pedal edema Musculoskeletal exam: ABSENT: deformity, dislocation Neurological exam: PRESENT: alert, oriented to person, oriented to place, or iented to time, oriented to situation, CN II-XII grossly intact. ABSENT: motor sensory deficit Psychiatric exam: PRESENT: appropriate affect, normal mood Skin exam: PRESENT: dry, warm, other - Erythema and edema of the distal right forearm, right wrist and right hand and fingers with severe tenderness to palpation and movement. There is local induration involving the right wrist. Evidence of recent abscess incision and drainage noted with dressing present.. ABSENT: jaundice, rash, urticaria Results Laboratory Results: 06/12/19 18:13 06/12/19 18:13 06/12/19 06/12/19 06/12/19 18:13 18:13 18:13 WBC 11.0 H RBC 4.13 Hgb 11.9 L Hct 35.1 L MCV 85 MCH 28.8 MCHC 33.8 RDW 15.0 H Plt Count 441 Seg Neutrophils % 68.1 Sodium 139.7 Potassium 3.9 Chloride 100 Carbon Dioxide 31 H Anion Gap 9 BUN 8 Creatinine 0.67 Est GFR ( Amer) > 60 Glucose 85 Calcium 8.9 Total Bilirubin 0.3 AST 20 Alkaline Phosphatase 113 Total Protein 7.9 Albumin 3.9 Serum HCG, Qual NEGATIVE 06/12/19 18:13 Troponin I < 0.012 Impressions: Hand X-Ray 06/12/19 17:05 IMPRESSION: Diffuse soft tissue swelling without underlying osseous injury or demonstrated retained radiopaque foreign body. Chest X-Ray 06/12/19 17:42 IMPRESSION: NO ACUTE RADIOGRAPHIC FINDING IN THE CHEST. Assessment and Plan - Diagnosis (1) Injection site abscess Qualifiers: Encounter type: initial encounter Qualified Code(s): T80.29XA - Infection following other infusion, transfusion and therapeutic injection, initial encounter Is this a current diagnosis for this admission?: Yes (2) Cellulitis of right wrist Is this a current diagnosis for this admission?: Yes (3) Upper respiratory infection, acute Is this a current diagnosis for this admission?: Yes (4) Heroin abuse Is this a current diagnosis for this admission?: Yes (5) Tobacco use disorder, severe, dependence Is this a current diagnosis for this admission?: Yes - Plan Summary Summary: Patient is admitted to the medical floor where she will receive routine symptomatic and supportive cares. She will be treated with IV antibiotics utilizing vancomycin and meropenem initially until wound cultures are available. Her pain will be treated with morphine sulfate 3 to 7.5 mg IV every 2 hours on an as-needed basis using a sliding pain scale. She will utilize Robitussin 10 mL every 4 hours as needed cough. Daily CBCs and metabolic profiles will be obtained as part of her ongoing management. Smoking cessation is advised and counseled briefly at the bedside. A nicotine replacement patch is available for the patient's use, if desired. - Time Time Spent with patient: 15-24 minutes Smoking Cessation Education: 3 to 10 minutes Medications reviewed and adjusted accordingly: Yes Anticipated discharge: Home - Inpatient Certification Based on my medical assessment, after consideration of the patient's comorbidities, presenting symptoms, or acuity I expect that the services needed warrant INPATIENT care.: Yes I certify that my determination is in accordance with my understanding of Medicare's requirements for reasonable and necessary INPATIENT services [42 CFR 412.3e].: Yes Medical Necessity: Need Close Monitoring Due to Risk of Patient Decompensation, Need for Pain Control, Need for IV Antibiotics, Risk of Complication if Not Cared For in Hospital
[2019-06-12] MEDS ORDERED: PROMETHAZINE HCL INJ 25 MG/1 ML VIAL IV PRN (21:29)
[2019-06-12] MEDS ORDERED: MAGNESIUM HYDROXIDE SUSP 30 ML UDCUP PO PRN (21:29)
[2019-06-12] MEDS ORDERED: MAG HYDROX/AL HYDROX/SIMETH SUSP 30 ML UDCUP PO PRN (21:29)
[2019-06-12] MEDS ORDERED: LEVALBUTEROL HCL NEB 0.63 MG/3 ML AMPUL NEB PRN (21:29)
[2019-06-12] MEDS ORDERED: TEMAZEPAM 15 MG CAPSULE PO PRN (21:29)
[2019-06-12] MEDS ORDERED: MORPHINE SULFATE 10 MG/ML INJ IV PRN (21:32)
[2019-06-12] MEDS ORDERED: ACETAMINOPHEN 325 MG TABLET PO PRN (21:32)
[2019-06-12] MEDS ORDERED: NICOTINE 21 MG/24 HR PATCH.TD24 TD PRN (21:32)
[2019-06-12] MEDS ORDERED: HYDRALAZINE HCL INJ/PF 20 MG/1 ML SDV IV PRN (21:32)
[2019-06-12] MEDS ORDERED: VANCOMYCIN HCL INJ 1000 MG VIAL IV SCH (21:45)
[2019-06-12] MEDS ORDERED: MEROPENEM 1 GM VIAL ONE (21:56)
[2019-06-12] MEDS ORDERED: MEROPENEM 500 MG VIAL ONE (21:56)
[2019-06-12] MEDS: MEROPENEM 1 GM VIAL IV SCH (22:21)
[2019-06-12] MEDS: MORPHINE SULFATE 10 MG/ML INJ IV PRN (22:21)
[2019-06-12] MEDS: FAMOTIDINE 20 MG TABLET PO SCH (22:22)
[2019-06-12] MEDS ORDERED: GUAIFENESIN SYRP 200 MG/10 ML UDC PO PRN (22:56)
[2019-06-12] MEDS ORDERED: VANCOMYCIN HCL INJ 1000 MG VIAL IV PRN (23:05)
[2019-06-13] MEDS ORDERED: VANCOMYCIN HCL INJ 1000 MG VIAL ONE (00:06)
[2019-06-13] MEDS: MEROPENEM 1 GM VIAL IV SCH (05:30)
[2019-06-13] MEDS: MORPHINE SULFATE 10 MG/ML INJ IV PRN ×4 (05:35→21:22)
[2019-06-13] MEDS ORDERED: VANCOMYCIN HCL 1,000 MG in DEXTROSE 5%-WATER 250 ML IV ONE (06:00)
[2019-06-13 06:39] LABS: HEMOGLOBIN 10.8 g/dL (12.0-15.5); MEAN CORPUSCULAR HEMOGLOBIN 28.6 pg (27.0-33.4); MEAN CORPUSCULAR HGB CONC 33.8 g/dL (32.0-36.0); MEAN CORPUSCULAR VOLUME 85 fl (80-97); PLATELET COUNT 360 10^3/uL (150-450); RED BLOOD COUNT 3.79 10^6/uL (3.72-5.28); RED CELL DISTRIBUTION WIDTH 14.5 % (11.5-14.0); WHITE BLOOD COUNT 8.1 10^3/uL (4.0-10.5)
[2019-06-13 07:03] LABS: ANION GAP 6 (5-19); BLOOD UREA NITROGEN 8 mg/dL (7-20); CALCIUM 8.1 mg/dL (8.4-10.2); CARBON DIOXIDE 28 mmol/L (22-30); CHLORIDE 104 mmol/L (98-107); GLUCOSE 80 mg/dL (75-110); POTASSIUM 4.1 mmol/L (3.6-5.0)
[2019-06-13] MEDS: FAMOTIDINE 20 MG TABLET PO SCH ×2 (09:41→21:21)
[2019-06-13] MEDS: ENOXAPARIN SODIUM INJ 40 MG/0.4 ML DISP.SYRIN SUBCUT SCH (09:41)
[2019-06-13] MEDS: DOCUSATE SODIUM 100 MG CAPSULE PO SCH ×2 (09:41→17:02)
[2019-06-13] MEDS: IBUPROFEN 800 MG TABLET PO PRN (11:08)
--- NOTE | 2019-06-13 12:09 | EKG REPORT ---
SEVERITY:- NORMAL ECG - SINUS RHYTHM : Confirmed by: Ruby Tanner 13-Jun-2019 12:08:37
--- NOTE | 2019-06-13 13:49 | PDOC PROGRESS REPORT ---
Subjective Progress Note for:: 06/13/19 Subjective:: CRISTAL FIELD is a 43 year old female who presented to the emergency room with a one-week history of swelling and pain in her right upper extremity. She admits that a week ago she developed an area of redness, pain and swelling on her right wrist at a recent heroin injection site. The redness, pain and swelling have gradually increased to involve her right hand, wrist and distal forearm. She describes the pain as a constant throbbing pressure in her right wrist and hand without radiation. The pain is worsened by attempted use of the hand and having the hand in a dependent position. The pain is partially relieved by elevation of the hand and wrist. Associated with the increased swelling she has noted subjective fever with chills for the last 2 days. She also notes an accompanying hoarseness with laryngitis and a nonproductive cough with sharp chest pains over the last 24 hours. She denies other associated or accompanying signs and symptoms. She admits prior similar episodes due to infection of heroin injection sites. She has not identified any additional aggravating or ameliorating factors for her right upper extremity pain. The emergency room she was found to have an abscess of the right wrist which was incised and drained. Patient was started on IV antibiotics, after cultures were obtained, and was subsequently admitted to the hospital for further evaluation and treatment. 06/13/2019. Patient still complaining of some neck right upper extremity pain otherwise denies any fever, chills, nausea, vomiting. Reason For Visit: CELLULITIS OF HAND WRIST ANF FOREARM Physical Exam Vital Signs: Temp Pulse Resp BP Pulse Ox 98.1 F 68 16 121/67 99 06/13/19 11:00 06/13/19 11:00 06/13/19 11:00 06/13/19 11:00 06/13/19 11:00 Intake & Output 06/12/19 06/13/19 06/14/19 06:59 06:59 06:59 Intake Total 150 370 Output Total 0 Balance 150 370 Weight 71.7 kg General appearance: PRESENT: no acute distress, well-developed, well-nourished Head exam: PRESENT: atraumatic, normocephalic Respiratory exam: PRESENT: clear to auscultation serena. ABSENT: rales, rhonchi, wheezes Cardiovascular exam: PRESENT: RRR. ABSENT: diastolic murmur, rubs, systolic murmur GI/Abdominal exam: PRESENT: normal bowel sounds, soft. ABSENT: distended, guarding, mass, organolmegaly, rebound, tenderness Extremities exam: PRESENT: other - Right hand swelling and tenderness diffuse erythema below the knee all the way to the wrist. Wrist abscess status post I&D in ED. No active discharge. Neurovascularly intact. Neurological exam: PRESENT: alert, awake, oriented to person, oriented to place, oriented to time, oriented to situation, CN II-XII grossly intact. ABSENT: motor sensory deficit Results Laboratory Results: 06/13/19 05:56 06/13/19 05:56 06/12/19 06/12/19 06/12/19 18:13 18:13 18:13 WBC 11.0 H RBC 4.13 Hgb 11.9 L Hct 35.1 L MCV 85 MCH 28.8 MCHC 33.8 RDW 15.0 H Plt Count 441 Seg Neutrophils % 68.1 Sodium 139.7 Potassium 3.9 Chloride 100 Carbon Dioxide 31 H Anion Gap 9 BUN 8 Creatinine 0.67 Est GFR ( Amer) > 60 Glucose 85 Calcium 8.9 Magnesium Total Bilirubin 0.3 AST 20 Alkaline Phosphatase 113 Total Protein 7.9 Albumin 3.9 Serum HCG, Qual NEGATIVE 06/13/19 06/13/19 05:56 05:56 WBC 8.1 RBC 3.79 Hgb 10.8 L Hct 32.0 L MCV 85 MCH 28.6 MCHC 33.8 RDW 14.5 H Plt Count 360 Seg Neutrophils % Sodium 137.6 Potassium 4.1 Chloride 104 Carbon Dioxide 28 Anion Gap 6 BUN 8 Creatinine 0.50 L Est GFR ( Amer) > 60 Glucose 80 Calcium 8.1 L Magnesium 1.8 Total Bilirubin AST Alkaline Phosphatase Total Protein Albumin Serum HCG, Qual 06/12/19 18:13 Troponin I < 0.012 Impressions: Hand X-Ray 06/12/19 17:05 IMPRESSION: Diffuse soft tissue swelling without underlying osseous injury or demonstrated retained radiopaque foreign body. Chest X-Ray 06/12/19 17:42 IMPRESSION: NO ACUTE RADIOGRAPHIC FINDING IN THE CHEST. Assessment and Plan - Diagnosis (1) Injection site abscess Qualifiers: Encounter type: initial encounter Qualified Code(s): T80.29XA - Infection following other infusion, transfusion and therapeutic injection, initial encounter Is this a current diagnosis for this admission?: Yes Plan: Right dorsum wrist. Status post I&D in ED. Due to IV drug abuse. Day 2 IV antibiotics. Day 2 IV meropenem. Received 1 dose of vancomycin in ED. Continue empiric IV antibiotics. Follow-up urine culture. Narrow spectrum once C&S available. (2) Cellulitis of right arm Is this a current diagnosis for this admission?: Yes Plan: As per #1. (3) Heroin abuse Is this a current diagnosis for this admission?: Yes Plan: Daily heroin abuser. Advised on abstinence. Monitor for withdrawal. Supportive measures. (4) Tobacco use disorder, severe, dependence Is this a current diagnosis for this admission?: Yes Plan: Advised on abstinence. NicoDerm patch provided. - Plan Summary Summary: Patient is admitted to the medical floor where she will receive routine symptomatic and supportive cares. She will be treated with IV antibiotics utilizing vancomycin and meropenem initially until wound cultures are available. Her pain will be treated with morphine sulfate 3 to 7.5 mg IV every 2 hours on an as-needed basis using a sliding pain scale. She will utilize Robitussin 10 mL every 4 hours as needed cough. Daily CBCs and metabolic profiles will be obtained as part of her ongoing management. Smoking cessation is advised and counseled briefly at the bedside. A nicotine replacement patch is available for the patient's use, if desired.
[2019-06-13] MEDS: MEROPENEM 1 GM in NORMAL SALINE 50 ML IV SCH ×2 (14:28→21:00)
[2019-06-13] MEDS: FOLIC ACID 1 MG TABLET PO SCH (14:30)
[2019-06-13] MEDS: THIAMINE HCL 100 MG TABLET PO SCH (14:30)
[2019-06-13] MEDS: LORAZEPAM INJ 2 MG/1 ML VIAL IV PRN ×2 (14:51→21:23)
[2019-06-13] MEDS: VANCOMYCIN HCL 1,000 MG in DEXTROSE 5%-WATER 250 ML IV SCH ×2 (14:51→21:22)
[2019-06-14] MEDS: LORAZEPAM INJ 2 MG/1 ML VIAL IV PRN ×3 (00:12→20:16)
[2019-06-14] MEDS: MORPHINE SULFATE 10 MG/ML INJ IV PRN ×6 (00:12→23:01)
[2019-06-14] MEDS ORDERED: DEXAMETHASONE SOD PHOSPHATE INJ 4 MG/1 ML VIAL ONE (05:00)
[2019-06-14] MEDS ORDERED: ONDANSETRON HCL INJ/PF 4 MG/2 ML SDV ONE (05:00)
[2019-06-14] MEDS: MEROPENEM 1 GM in NORMAL SALINE 50 ML IV SCH ×3 (05:48→23:02)
[2019-06-14] MEDS: VANCOMYCIN HCL 1,000 MG in DEXTROSE 5%-WATER 250 ML IV SCH ×3 (06:36→17:19)
[2019-06-14 07:10] LABS: HEMATOCRIT 34.1 % (36.0-47.0); HEMOGLOBIN 11.4 g/dL (12.0-15.5); MEAN CORPUSCULAR HEMOGLOBIN 28.1 pg (27.0-33.4); MEAN CORPUSCULAR HGB CONC 33.3 g/dL (32.0-36.0); MEAN CORPUSCULAR VOLUME 84 fl (80-97); PLATELET COUNT 411 10^3/uL (150-450); RED BLOOD COUNT 4.04 10^6/uL (3.72-5.28); RED CELL DISTRIBUTION WIDTH 14.5 % (11.5-14.0); WHITE BLOOD COUNT 12.6 10^3/uL (4.0-10.5)
[2019-06-14 07:37] LABS: VANCOMYCIN,TROUGH 12.7 ug/mL (5.0-20.0)
[2019-06-14] MEDS: ENOXAPARIN SODIUM INJ 40 MG/0.4 ML DISP.SYRIN SUBCUT SCH (09:09)
[2019-06-14] MEDS: THIAMINE HCL 100 MG TABLET PO SCH (09:09)
[2019-06-14] MEDS: FOLIC ACID 1 MG TABLET PO SCH (09:09)
[2019-06-14] MEDS: DOCUSATE SODIUM 100 MG CAPSULE PO SCH ×2 (09:09→17:18)
[2019-06-14] MEDS: FAMOTIDINE 20 MG TABLET PO SCH ×2 (09:09→23:21)
[2019-06-14] MEDS ORDERED: DEXTROSE 40% GEL 15 GM TUBE PO PRN ×2 (10:14)
[2019-06-14] MEDS ORDERED: DEXTROSE 50%-WATER 25 GM/50 ML DISP.SYRIN IV PRN ×2 (10:14)
[2019-06-14] MEDS ORDERED: GLUCAGON,HUMAN RECOMB 1 MG INJ SUBCUT PRN (10:14)
--- NOTE | 2019-06-14 10:23 | PDOC CONSULTATION ---
Consultation Consult Date: 06/14/19 Attending physician:: SADIE LANZA Provider Consulted: CHENCHO LOPEZ Consult reason:: Right hand infection History of Present Illness Admission Date/PCP: 06/12/19 20:12 History of Present Illness: CRISTAL FIELD is a 43 year old female Presents emergency department via ground rescue complaining of several day history of right hand swelling, pain, redness. Patient is right-hand dominant. She has a history of IV drug abuse, hepatitis C, and was recently injecting drugs into her right hand. In the emergency department on 06/12/2019 she underwent incision and drainage and packing placement by the emergency department staff. Wound cultures sent, Gram stain showing gram-positive cocci but no growth on cultures. She had a mild leukocytosis on admission, which subsided, and is now back up to 12.6. Because of persisting pain, swelling now more of her hand rather than wrist, surgery was consulted. She is kept n.p.o. Past Medical History Cardiac Medical History: Denies: Coronary Artery Disease, Hypertension Pulmonary Medical History: Reports: Pneumonia Denies: Asthma, Chronic Obstructive Pulmonary Disease (COPD) EENT Medical History: Denies: Cataracts, Ears - Hearing aids Neurological Medical History: Denies: Hemorrhagic CVA, Ischemic CVA, Multiple Sclerosis, Seizures Endocrine Medical History: Denies: Diabetes Mellitus Type 1, Diabetes Mellitus Type 2, Hyperthyroidism, Hypothyroidism Renal/ Medical History: Denies: Chronic Kidney Disease, Nephrolithiasis Malignancy Medical History: Reports: None GI Medical History: Denies: Cirrhosis, Hepatitis Musculoskeltal Medical History: Denies: Arthritis, Gout Skin Medical History: Denies: Eczema, Psoriasis Psychiatric Medical History: Reports: Substance Abuse, Tobacco Dependency Denies: Alcohol Dependency Traumatic Medical History: Reports: None Hematology: Denies: Anemia, Bleeding Tendencies Infectious Medical History: Reports: None Past Surgical History Past Surgical History: Incision and drainage of right wrist abscess Past Surgical History: Reports: Tubal Ligation Social History Lives with: Alone Smoking Status: Current Every Day Smoker Cigarettes Packs Per Day: 1 Electronic Cigarette use?: No Frequency of Alcohol Use: None Hx Recreational Drug Use: Yes Drugs: Heroin Hx Prescription Drug Abuse: No - Advance Directive Resuscitation Status: Full Code Family History Family History: None, Malignancy. denies: CAD, DM, Hypertension Parental Family History Reviewed: No Children Family History Reviewed: No Sibling(s) Family History Reviewed.: No Medication/Allergy Home Medications: No Home Medications 05/22/19 Allergies/Adverse Reactions: ciprofloxacin [From Cipro HC] Allergy (Verified 06/12/19 17:04) hydrocortisone [From Cipro HC] Allergy (Verified 06/12/19 17:04) Penicillins Allergy (Verified 06/12/19 17:04) Review of Systems ROS unobtainable: Due to mental status Physical Exam Vital Signs: Temp Pulse Resp BP Pulse Ox 98.4 F 62 17 107/51 L 93 06/14/19 08:50 06/14/19 08:50 06/14/19 08:50 06/14/19 08:50 06/14/19 08:50 Intake & Output 06/13/19 06/14/19 06/15/19 06:59 06:59 06:59 Intake Total 150 1270 Output Total 0 Balance 150 1270 Weight 71.7 kg 71.4 kg General appearance: PRESENT: mild distress Head exam: PRESENT: normocephalic Respiratory exam: PRESENT: clear to auscultation serena Cardiovascular exam: PRESENT: RRR Extremities exam: PRESENT: other - Right upper extremity dressing removed. There is an open post surgical incision and drainage wound site over the dorsal wrist, with a small iodoform packing still in. Packing removed. There is generalized swelling, and she went to the dorsum of the wrist, extending to the dorsum of the hand. There is limited range of motion of the hand secondary to pain. Results Laboratory Results: 06/14/19 06:18 06/14/19 06:18 06/14/19 06/14/19 06:18 06:18 WBC 12.6 H RBC 4.04 Hgb 11.4 L Hct 34.1 L MCV 84 MCH 28.1 MCHC 33.3 RDW 14.5 H Plt Count 411 Creatinine 0.58 Est GFR ( Amer) > 60 06/12/19 18:13 Troponin I < 0.012 Impressions: Hand X-Ray 06/12/19 17:05 IMPRESSION: Diffuse soft tissue swelling without underlying osseous injury or demonstrated retained radiopaque foreign body. Chest X-Ray 06/12/19 17:42 IMPRESSION: NO ACUTE RADIOGRAPHIC FINDING IN THE CHEST. Assessment & Plan - Diagnosis (1) Injection site abscess Qualifiers: Encounter type: initial encounter Qualified Code(s): T80.29XA - Infection following other infusion, transfusion and therapeutic injection, initial encounter Is this a current diagnosis for this admission?: Yes Plan: Impression: Progression of soft tissue infection dorsum right wrist extending to right hand in [id number] 43-year-old female with a history of IV drug abuse; despite previous I&D 2 days ago of the right wrist, there is inadequate source control of septic focus. ReCommendations: 1. We have kept the patient n.p.o. now and plan to take her the operating room, to perform wider drainage, debridement, possible counterincision with a drain placement. I discussed this with the patient, I believe she understands and agrees to proceed. 2. I discussed the above with Dr. Daly, anesthesiologist who is in agreement to proceed as well. 3. The healthcare team recognizes this is a challenging case given the long history of substance abuse, narcotic dependency, and pain management issues. (3) Tobacco use disorder, severe, dependence Is this a current diagnosis for this admission?: Yes (4) Heroin abuse Is this a current diagnosis for this admission?: Yes - Time Time Spent: 50 to 70 Minutes Smoking Cessation Education: over 10 minutes Medications reviewed and adjusted accordingly: Yes Anticipated discharge: Home
[2019-06-14] MEDS ORDERED: BUPIVACAINE HCL 0.25 % INJ/PF (2.5 MG/1 ML) 30 ML VIAL ONE (10:25)
[2019-06-14] MEDS ORDERED: LIDOCAINE 0.5% INJ-PF (5 MG/ML) 50 ML SDV ONE (10:25)
[2019-06-14] MEDS ORDERED: PROMETHAZINE HCL INJ 25 MG/1 ML VIAL IV PRN (10:30)
[2019-06-14 11:04] LABS: URINE AMPHETAMINES SCREEN NEGATIVE; URINE BARBITURATES SCREEN NEGATIVE; URINE BENZODIAZEPINES SCREEN NEGATIVE; URINE COCAINE SCREEN NEGATIVE; URINE MARIJUANA (THC) SCREEN NEGATIVE; URINE METHADONE SCREEN NEGATIVE; URINE PHENCYCLIDINE SCREEN NEGATIVE
--- NOTE | 2019-06-14 12:49 | PDOC PROGRESS REPORT ---
Subjective Progress Note for:: 06/14/19 Subjective:: CRISTAL FIELD is a 43 year old female who presented to the emergency room with a one-week history of swelling and pain in her right upper extremity. She admits that a week ago she developed an area of redness, pain and swelling on her right wrist at a recent heroin injection site. The redness, pain and swelling have gradually increased to involve her right hand, wrist and distal forearm. She describes the pain as a constant throbbing pressure in her right wrist and hand without radiation. The pain is worsened by attempted use of the hand and having the hand in a dependent position. The pain is partially relieved by elevation of the hand and wrist. Associated with the increased swelling she has noted subjective fever with chills for the last 2 days. She also notes an accompanying hoarseness with laryngitis and a nonproductive cough with sharp chest pains over the last 24 hours. She denies other associated or accompanying signs and symptoms. She admits prior similar episodes due to infection of heroin injection sites. She has not identified any additional aggravating or ameliorating factors for her right upper extremity pain. The emergency room she was found to have an abscess of the right wrist which was incised and drained. Patient was started on IV antibiotics, after cultures were obtained, and was subsequently admitted to the hospital for further evaluation and treatment. 06/13/2019. Patient still complaining of some neck right upper extremity pain otherwise denies any fever, chills, nausea, vomiting. 06/14/2019. Still complaining of right upper extremity pain, not help with morphine, denies any fever, chills, nausea, vomiting, diarrhea, constipation or any urinary symptoms. Reason For Visit: CELLULITIS OF HAND WRIST ANF FOREARM Physical Exam Vital Signs: Temp Pulse Resp BP Pulse Ox 98.5 F 69 16 126/59 H 92 06/14/19 11:23 06/14/19 11:23 06/14/19 11:23 06/14/19 11:23 06/14/19 11:23 Intake & Output 06/13/19 06/14/19 06/15/19 06:59 06:59 06:59 Intake Total 150 1270 Output Total 0 Balance 150 1270 Weight 71.7 kg 71.4 kg General appearance: PRESENT: no acute distress, well-developed, well-nourished Head exam: PRESENT: atraumatic, normocephalic Respiratory exam: PRESENT: clear to auscultation serena. ABSENT: rales, rhonchi, wheezes Cardiovascular exam: PRESENT: RRR. ABSENT: diastolic murmur, rubs, systolic murmur GI/Abdominal exam: PRESENT: normal bowel sounds, soft. ABSENT: distended, guarding, mass, organolmegaly, rebound, tenderness Extremities exam: PRESENT: tenderness, other - Right upper extremity below knee tenderness. Erythema and swelling. Results Laboratory Results: 06/14/19 06:18 06/14/19 06:18 06/14/19 06/14/19 06:18 06:18 WBC 12.6 H RBC 4.04 Hgb 11.4 L Hct 34.1 L MCV 84 MCH 28.1 MCHC 33.3 RDW 14.5 H Plt Count 411 Creatinine 0.58 Est GFR ( Amer) > 60 06/12/19 18:13 Troponin I < 0.012 Impressions: Hand X-Ray 06/12/19 17:05 IMPRESSION: Diffuse soft tissue swelling without underlying osseous injury or demonstrated retained radiopaque foreign body. Chest X-Ray 06/12/19 17:42 IMPRESSION: NO ACUTE RADIOGRAPHIC FINDING IN THE CHEST. Assessment and Plan - Diagnosis (1) Injection site abscess Qualifiers: Encounter type: initial encounter Qualified Code(s): T80.29XA - Infection following other infusion, transfusion and therapeutic injection, initial encounter Is this a current diagnosis for this admission?: Yes Plan: Right dorsum wrist. Status post I&D in ED. Due to IV drug abuse. Day 3 IV antibiotics. Day 3 IV meropenem. Received 1 dose of vancomycin in ED. Cultures no growth so far. Surgery consulted. Patient is scheduled to go to or for I&D today. Continue empiric IV antibiotics. Follow-up urine culture. Narrow spectrum once C&S available. (2) Cellulitis of right arm Is this a current diagnosis for this admission?: Yes Plan: As per #1. (3) Heroin abuse Is this a current diagnosis for this admission?: Yes Plan: Daily heroin abuser. Advised on abstinence. Monitor for withdrawal. Supportive measures. (4) Tobacco use disorder, severe, dependence Is this a current diagnosis for this admission?: Yes Plan: Advised on abstinence. NicoDerm patch provided. - Plan Summary Summary: Patient is admitted to the medical floor where she will receive routine symptomatic and supportive cares. She will be treated with IV antibiotics utilizing vancomycin and meropenem initially until wound cultures are available. Her pain will be treated with morphine sulfate 3 to 7.5 mg IV every 2 hours on an as-needed basis using a sliding pain scale. She will utilize Robitussin 10 mL every 4 hours as needed cough. Daily CBCs and metabolic profiles will be obtained as part of her ongoing management. Smoking cessation is advised and counseled briefly at the bedside. A nicotine replacement patch is available for the patient's use, if desired.
[2019-06-14] MEDS ORDERED: FENTANYL CITRATE INJ/PF 100 MCG/2 ML AMPUL ONE (13:39)
[2019-06-14] MEDS ORDERED: PROPOFOL INJ 200 MG/20 ML VIAL IV ONE (13:40)
[2019-06-14] MEDS ORDERED: MIDAZOLAM 2 MG/2 ML INJ ONE (13:40)
[2019-06-14] MEDS ORDERED: DIPHENHYDRAMINE HCL 50 MG/ML VIAL IV PRN (13:44)
[2019-06-14] MEDS ORDERED: MEPERIDINE HCL/PF INJ 25 MG/1 ML DISP.SYRIN IV PRN (13:44)
[2019-06-14] MEDS ORDERED: OXYCODONE-ACETAMINOPHEN 5-325 MG TABLET PO PRN ×2 (13:44)
[2019-06-14] MEDS ORDERED: ONDANSETRON HCL INJ/PF 4 MG/2 ML SDV IV PRN (13:44)
[2019-06-14] MEDS ORDERED: FENTANYL CITRATE INJ/PF 100 MCG/2 ML AMPUL IV PRN ×3 (13:44)
[2019-06-14] MEDS ORDERED: MORPHINE SULFATE 10 MG/ML INJ IV PRN (13:44)
--- NOTE | 2019-06-14 15:12 | Operative Report ---
Operative Report DATE OF SURGERY: 06/14/19 PREOPERATIVE DIAGNOSIS: Soft tissue sepsis right wrist and right hand status po st I&D. Intra-venous drug abuse right wrist POSTOPERATIVE DIAGNOSIS: Same with extension of soft tissue infection subcutaneous space right hand involving first and second web space. Probable right wrist septic thrombophlebitis OPERATION: 1. Excisional debridement of skin, subcutaneous tissue, evacuation of subcutaneous infection right wrist and hand dorsal aspect. 2. Placement of Brittni loop drain through counterincision first webspace dorsum of hand. 3. Segmental excision of superficial vein dorsum right wrist. 4. Packing of drain sites with iodoform quarter-inch packing SURGEON: CHENCHO LOPEZ ANESTHESIA: GA TISSUE REMOVED OR ALTERED: Necrotic and infected skin subcutaneous tissue; portion of right superficial vein COMPLICATIONS: None ESTIMATED BLOOD LOSS: 30 cc INTRAOPERATIVE FINDINGS: See below PROCEDURE: The patient was taken from the preop holding area to the main operating room where general anesthesia was induced via LMA. The right arm was exposed, right hand and wrist prepped and draped in sterile fashion. Surgical plan and surgical timeout were conducted. The findings were significant for a hole in the dorsum of the right wrist at the site of previous incision and drainage. Using a number 15 blade, this initial I&D site was excised to a whole approximately 2-1/2 cm in diameter. Necrotic subcutaneous tissue was broken up with index finger. Using a Lakia clamp, the underlying skin going towards the hand was elevated and there were 2 dominant tracking its 1 towards the first and the second towards the second web spaces. These 2 pockets were irrigated out vigorously with saline after sending a subcutaneous swab for Gram stain and sensitivity. I made a counterincision over the dorsal aspect of the first webspace, and passed a 1 inch Benton drain from the initial debridement site through the counterincision, and tied the drain in a loop. This facilitated further irrigation. I carefully inspected the tendon overlying the distal wrist and there was no apparent tracking of the infection. However the skin overlying the dorsum of the hand was quite edematous. I now carefully inspected the initial debridement site. There was a center of the wound a sclerotic, infected appearing superficial vein with a branch point just at the distal wrist. I felt that resection of this portion of the vein was indicated as the findings were consistent with probable thrombophlebitis. In approximately 1-1/2 to 2 cm segment of this vein was excised, ligating the single proximal and dual distal ends with a 3-0 Prolene suture. I irrigated the wound further, and I felt the treatment was sufficient. Both entry and counterincision wounds were packed with quarter inch iodoform packing. 4 x 4's applied to the palm, spaces, and dorsum of the hand. Curlex wraps were now applied. Patient tolerated procedure well. She was taken to the recovery room in stable condition with the right arm elevated. In addition to the wound swab sent for Gram stain culture and sensitivity, we sent the resected portion of vein to microbiology for Gram stain culture and sensitivity.
[2019-06-14] MEDS ORDERED: HYDROMORPHONE HCL INJ/PF 2 MG/ML AMPULE ONE (15:18)
[2019-06-14] MEDS ORDERED: LORAZEPAM INJ 2 MG/1 ML VIAL ONE (15:18)
[2019-06-15] MEDS: LORAZEPAM INJ 2 MG/1 ML VIAL IV PRN ×4 (01:14→19:29)
[2019-06-15] MEDS: VANCOMYCIN HCL 1,000 MG in DEXTROSE 5%-WATER 250 ML IV SCH ×3 (01:14→18:33)
[2019-06-15 04:28] LABS: HEMOGLOBIN 11.2 g/dL (12.0-15.5); MEAN CORPUSCULAR HEMOGLOBIN 27.8 pg (27.0-33.4); MEAN CORPUSCULAR VOLUME 84 fl (80-97); PLATELET COUNT 400 10^3/uL (150-450); RED BLOOD COUNT 4.04 10^6/uL (3.72-5.28); RED CELL DISTRIBUTION WIDTH 14.4 % (11.5-14.0); WHITE BLOOD COUNT 11.2 10^3/uL (4.0-10.5)
[2019-06-15] MEDS: MORPHINE SULFATE 10 MG/ML INJ IV PRN ×8 (04:30→22:05)
[2019-06-15 04:50] LABS: ALBUMIN 2.9 g/dL (3.5-5.0); ALKALINE PHOSPHATASE 85 U/L (38-126); ANION GAP 6 (5-19); ASPARTATE AMINO TRANSFERASE 20 U/L (14-36); BILIRUBIN,DIRECT 0.1 mg/dL (0.0-0.4); BILIRUBIN,TOTAL 0.2 mg/dL (0.2-1.3); BLOOD UREA NITROGEN 10 mg/dL (7-20); CALCIUM 8.3 mg/dL (8.4-10.2); CARBON DIOXIDE 28 mmol/L (22-30); CHLORIDE 104 mmol/L (98-107); GLUCOSE 101 mg/dL (75-110); POTASSIUM 4.5 mmol/L (3.6-5.0); TOTAL PROTEIN 6.3 g/dL (6.3-8.2)
[2019-06-15] MEDS: MEROPENEM 1 GM in NORMAL SALINE 50 ML IV SCH ×3 (05:32→21:53)
[2019-06-15] MEDS: IBUPROFEN 800 MG TABLET PO PRN ×2 (08:38→18:32)
--- NOTE | 2019-06-15 09:12 | PDOC PROGRESS REPORT ---
Subjective Progress Note for:: 06/15/19 Subjective:: Pain at wound. Reason For Visit: CELLULITIS OF HAND WRIST ANF FOREARM Physical Exam Vital Signs: Temp Pulse Resp BP Pulse Ox 98.5 F 80 16 115/60 99 06/15/19 07:42 06/15/19 07:42 06/15/19 07:42 06/15/19 07:42 06/15/19 07:42 Intake & Output 06/14/19 06/15/19 06/16/19 06:59 06:59 06:59 Intake Total 1270 2326 Output Total 170 Balance 1270 2156 Weight 71.4 kg 74.1 kg General appearance: PRESENT: cooperative Respiratory exam: PRESENT: clear to auscultation serena Cardiovascular exam: PRESENT: RRR Extremities exam: PRESENT: other - Right hand wound is clean with no purulent drainage. Mild surrounding erythema and induration. Dressings were removed. Patient has a Turner drain in place. There is no crepitus and there is no fluctuance. No evidence of undrained abscess. Results Laboratory Results: 06/15/19 03:46 06/15/19 03:46 06/15/19 06/15/19 03:46 03:46 WBC 11.2 H RBC 4.04 Hgb 11.2 L Hct 34.0 L MCV 84 MCH 27.8 MCHC 33.0 RDW 14.4 H Plt Count 400 Sodium 137.5 Potassium 4.5 Chloride 104 Carbon Dioxide 28 Anion Gap 6 BUN 10 Creatinine 0.54 Est GFR ( Amer) > 60 Glucose 101 Calcium 8.3 L Magnesium 1.9 Total Bilirubin 0.2 AST 20 Alkaline Phosphatase 85 Total Protein 6.3 Albumin 2.9 L 06/12/19 18:13 Troponin I < 0.012 Impressions: Hand X-Ray 06/12/19 17:05 IMPRESSION: Diffuse soft tissue swelling without underlying osseous injury or demonstrated retained radiopaque foreign body. Chest X-Ray 06/12/19 17:42 IMPRESSION: NO ACUTE RADIOGRAPHIC FINDING IN THE CHEST. Assessment & Plan - Diagnosis (1) Injection site abscess Qualifiers: Encounter type: initial encounter Qualified Code(s): T80.29XA - Infection following other infusion, transfusion and therapeutic injection, initial encounter Is this a current diagnosis for this admission?: Yes Plan: Status post debridement. The wound appears good. May discharge patient home when okay with the hospitalist with p.o. antibiotics for a week with soapy water gentle washing of the wound once a day followed by dry dressing. Defer to hospitalist for pain management. Please have patient follow-up at [facility] at the end of this week for wound check and Turner drain removal. Will sign off. Please call us for any questions or concerns. - Time Time Spent with patient: Less than 15 minutes
[2019-06-15] MEDS: ENOXAPARIN SODIUM INJ 40 MG/0.4 ML DISP.SYRIN SUBCUT SCH (09:23)
[2019-06-15] MEDS: DOCUSATE SODIUM 100 MG CAPSULE PO SCH ×3 (09:28→18:31)
[2019-06-15] MEDS: THIAMINE HCL 100 MG TABLET PO SCH (09:28)
[2019-06-15] MEDS: FAMOTIDINE 20 MG TABLET PO SCH ×2 (09:28→21:53)
[2019-06-15] MEDS: FOLIC ACID 1 MG TABLET PO SCH (09:41)
[2019-06-15] MEDS ORDERED: HYDROMORPHONE HCL INJ/PF 2 MG/ML AMPULE ONE (10:06)
[2019-06-15] MEDS ORDERED: HYDROMORPHONE HCL INJ/PF 2 MG/ML AMPULE IV ONE (10:30)
--- NOTE | 2019-06-15 10:30 | PDOC PROGRESS REPORT ---
Subjective Reason For Visit: CELLULITIS OF HAND WRIST ANF FOREARM Physical Exam Vital Signs: Temp Pulse Resp BP Pulse Ox 98.5 F 80 16 115/60 99 06/15/19 07:42 06/15/19 07:42 06/15/19 07:42 06/15/19 07:42 06/15/19 07:42 Intake & Output 06/14/19 06/15/19 06/16/19 06:59 06:59 06:59 Intake Total 1270 2626 Output Total 170 Balance 1270 2456 Weight 71.4 kg 74.1 kg Results Laboratory Results: 06/15/19 03:46 06/15/19 03:46 06/15/19 06/15/19 03:46 03:46 WBC 11.2 H RBC 4.04 Hgb 11.2 L Hct 34.0 L MCV 84 MCH 27.8 MCHC 33.0 RDW 14.4 H Plt Count 400 Sodium 137.5 Potassium 4.5 Chloride 104 Carbon Dioxide 28 Anion Gap 6 BUN 10 Creatinine 0.54 Est GFR ( Amer) > 60 Glucose 101 Calcium 8.3 L Magnesium 1.9 Total Bilirubin 0.2 AST 20 Alkaline Phosphatase 85 Total Protein 6.3 Albumin 2.9 L 06/12/19 18:13 Troponin I < 0.012 Impressions: Hand X-Ray 06/12/19 17:05 IMPRESSION: Diffuse soft tissue swelling without underlying osseous injury or demonstrated retained radiopaque foreign body. Chest X-Ray 06/12/19 17:42 IMPRESSION: NO ACUTE RADIOGRAPHIC FINDING IN THE CHEST. Assessment & Plan - Diagnosis (1) Injection site abscess Qualifiers: Encounter type: initial encounter Qualified Code(s): T80.29XA - Infection following other infusion, transfusion and therapeutic injection, initial encounter Is this a current diagnosis for this admission?: Yes Plan: Discussed with surgeon about dressing. Patient had packing into her hand wound intraoperatively. Patient was given a dosage of Dilaudid and then both of these packings were removed. - Time Time Spent with patient: Less than 15 minutes
--- NOTE | 2019-06-15 17:11 | PDOC PROGRESS REPORT ---
Subjective Progress Note for:: 06/15/19 Subjective:: Patient still complaining of pain in the right hand despite pain medications. Denies any fevers or chills. Reason For Visit: CELLULITIS OF HAND WRIST ANF FOREARM Physical Exam Vital Signs: Temp Pulse Resp BP Pulse Ox 98.3 F 80 16 136/53 H 98 06/15/19 12:00 06/15/19 12:00 06/15/19 12:00 06/15/19 12:00 06/15/19 12:00 Intake & Output 06/14/19 06/15/19 06/16/19 06:59 06:59 06:59 Intake Total 1270 2626 490 Output Total 170 Balance 1270 2456 490 Weight 71.4 kg 74.1 kg General appearance: PRESENT: no acute distress, cooperative Neck exam: ABSENT: JVD Respiratory exam: PRESENT: clear to auscultation serena, symmetrical, unlabored. ABSENT: tachypnea, wheezes Cardiovascular exam: PRESENT: RRR, +S1, +S2. ABSENT: tachycardia Extremities exam: PRESENT: other - Swelling in the hand with [place] drain in pl [place] without active bleeding Neurological exam: PRESENT: alert, awake, oriented to person, oriented to place, oriented to time, oriented to situation Results Laboratory Results: 06/15/19 03:46 06/15/19 03:46 06/15/19 06/15/19 03:46 03:46 WBC 11.2 H RBC 4.04 Hgb 11.2 L Hct 34.0 L MCV 84 MCH 27.8 MCHC 33.0 RDW 14.4 H Plt Count 400 Sodium 137.5 Potassium 4.5 Chloride 104 Carbon Dioxide 28 Anion Gap 6 BUN 10 Creatinine 0.54 Est GFR ( Amer) > 60 Glucose 101 Calcium 8.3 L Magnesium 1.9 Total Bilirubin 0.2 AST 20 Alkaline Phosphatase 85 Total Protein 6.3 Albumin 2.9 L 06/12/19 20:31 Hand - Abscess Gram Stain - Final 06/12/19 20:31 Hand - Abscess Wound Culture - Final Group G Beta Streptococcus Skin Autumn No Anaerobic Organisms 06/12/19 18:13 Troponin I < 0.012 Impressions: Hand X-Ray 06/12/19 17:05 IMPRESSION: Diffuse soft tissue swelling without underlying osseous injury or demonstrated retained radiopaque foreign body. Chest X-Ray 06/12/19 17:42 IMPRESSION: NO ACUTE RADIOGRAPHIC FINDING IN THE CHEST. Assessment and Plan - Diagnosis (1) Injection site abscess Qualifiers: Encounter type: initial encounter Qualified Code(s): T80.29XA - Infection following other infusion, transfusion and therapeutic injection, initial encounter Is this a current diagnosis for this admission?: Yes Plan: Right dorsum wrist. Status post I&D with Brittni drain in place. Due to IV drug abuse. Day 4 IV antibiotics. Wound culture growing Streptococcus. Awaiting antibiotics sensitivity. Patient will follow-up at the surgical clinic at the end of the week to remove the Brittni drain. Pain control. (2) Cellulitis of right wrist Is this a current diagnosis for this admission?: Yes Plan: Plan as above (3) Tobacco use disorder, severe, dependence Is this a current diagnosis for this admission?: Yes Plan: Advised on abstinence. NicoDerm patch provided. (4) Heroin abuse Is this a current diagnosis for this admission?: Yes Plan: Daily heroin abuser. Patient seems to be very sensitive to pain due to her chronic heroin use. Advised on abstinence. Monitor for withdrawal. Supportive measures. - Time Time Spent with patient: 15-24 minutes
[2019-06-16] MEDS: VANCOMYCIN HCL 1,000 MG in DEXTROSE 5%-WATER 250 ML IV SCH ×2 (01:20→10:15)
[2019-06-16] MEDS: LORAZEPAM INJ 2 MG/1 ML VIAL IV PRN ×2 (01:20→08:30)
[2019-06-16] MEDS: MORPHINE SULFATE 10 MG/ML INJ IV PRN ×3 (05:19→11:58)
[2019-06-16] MEDS: MEROPENEM 1 GM in NORMAL SALINE 50 ML IV SCH (05:20)
[2019-06-16] MEDS: THIAMINE HCL 100 MG TABLET PO SCH (10:16)
[2019-06-16] MEDS: FAMOTIDINE 20 MG TABLET PO SCH (10:16)
[2019-06-16] MEDS: FOLIC ACID 1 MG TABLET PO SCH (10:16)
[2019-06-16] MEDS: DOCUSATE SODIUM 100 MG CAPSULE PO SCH (10:22)
[2019-06-16] MEDS: ENOXAPARIN SODIUM INJ 40 MG/0.4 ML DISP.SYRIN SUBCUT SCH (10:22)
[2019-06-16 10:35] LABS: ABSOLUTE EOSINOPHILS # (AUTO) 0.2 10^3/uL (0.0-0.6); ABSOLUTE LYMPHOCYTES (AUTO) 2.5 10^3/uL (0.5-4.7); ABSOLUTE NEUT (AUTO) 7.8 10^3/uL (1.7-8.2); BASOPHILS % (AUTO) 0.4 % (0-2); EOSINOPHILS % (AUTO) 1.6 % (0-6); HEMATOCRIT 39.7 % (36.0-47.0); LYMPHOCYTES % (AUTO) 21.6 % (13-45); MEAN CORPUSCULAR HEMOGLOBIN 27.4 pg (27.0-33.4); MEAN CORPUSCULAR HGB CONC 32.6 g/dL (32.0-36.0); MEAN CORPUSCULAR VOLUME 84 fl (80-97); MONOCYTES % (AUTO) 8.3 % (3-13); PLATELET COUNT 516 10^3/uL (150-450); RED BLOOD COUNT 4.72 10^6/uL (3.72-5.28); RED CELL DISTRIBUTION WIDTH 14.7 % (11.5-14.0); SEGMENTED NEUTROPHILS % (AUTO) 68.1 % (42-78); TOTAL CELLS COUNTED % (AUTO) 100 %; WHITE BLOOD COUNT 11.5 10^3/uL (4.0-10.5)
[2019-06-16 11:03] LABS: ANION GAP 8 (5-19); BLOOD UREA NITROGEN 7 mg/dL (7-20); CALCIUM 9.2 mg/dL (8.4-10.2); CARBON DIOXIDE 27 mmol/L (22-30); CHLORIDE 103 mmol/L (98-107); GLUCOSE 87 mg/dL (75-110); POTASSIUM 4.7 mmol/L (3.6-5.0)
--- NOTE | 2019-06-16 12:12 | PDOC DISCHARGE SUMMARY ---
Impression - Admit/DC Date/PCP Admission Date/Primary Care Provider: 06/12/19 20:12 Discharge Date: 06/16/19 - Discharge Diagnosis (1) Injection site abscess Is this a current diagnosis for this admission?: Yes (2) Cellulitis of right wrist Is this a current diagnosis for this admission?: Yes (3) Tobacco use disorder, severe, dependence Is this a current diagnosis for this admission?: Yes (4) Heroin abuse Is this a current diagnosis for this admission?: Yes (5) Upper respiratory infection, acute Is this a current diagnosis for this admission?: Yes - Assessment Summary: Patient was admitted for evaluation of swelling and pain in the right upper extremity mostly involving her right hand/wrist. Hand x-ray showed diffuse soft tissue swelling in the right hand. Blood work showed leukocytosis and mild metabolic alkalosis. Chest x-ray done was unrevealing. Patient was hemodynamically stable. Concern was for abscess in the right hand and as such an incision and drainage was performed while in the emergency department. Wound cultures were sent. Patient was started on broad-spectrum antibiotics with vancomycin and meropenem. Wound cultures later resulted to be growing Streptococcus species. Patient cellulitis of the right hand complicated by abscess formation was thought to be secondary to injection site infection from a IV heroin use. Patient had another incision and drainage performed on 06/14/2019 due to persistence of fluctuance and swelling and significant pain. This time a Brittni drain was left in the abscess collection. Patient has received pain control but has continued to experience significant pain likely due to increased sensitivity given that she is a daily heroin user. Patient is being discharged with some pain control and to take Keflex for 7 more days for treatment of Streptococcus abscess. I have called [place] [facility] and scheduled patient for follow-up on 06/21/2019 at 11 AM for reevaluation of abscess and removal of the Salem drain. Patient is also being discharged with stool softeners, folic acid and thiamine for history of alcohol use. - Additional Information Resuscitation Status: Full Code Discharge Diet: As Tolerated Discharge Activity: Activity As Tolerated Referrals: [facility] [Provider Group] - 06/21/19 11:00 am (Follow-up for evaluation of you abscess want to get the Brittni drain removed.) Prescriptions: Docusate Sodium [Colace 100 mg Capsule] 100 mg PO BID #14 capsule Folic Acid [Folvite 1 mg Tablet] 1 mg PO DAILY #14 tablet Cephalexin Monohydrate [Keflex 500 mg Capsule] 500 mg PO Q6H 7 Days capsule Ibuprofen [Motrin 800 mg Tablet] 800 mg PO TIDP PRN #18 tablet PRN Reason: Oxycodone HCl [Oxycodone HCl 10 MG Tablet] 10 mg PO Q6HP PRN #10 tablet PRN Reason: Thiamine HCl [Thiamine 100 mg Tablet] 100 mg PO DAILY #14 tablet Home Medications: Cephalexin Monohydrate [Keflex 500 mg Capsule] 500 mg PO Q6H 7 Days capsule 06/16/19 Docusate Sodium [Colace 100 mg Capsule] 100 mg PO BID #14 capsule 06/16/19 Folic Acid [Folvite 1 mg Tablet] 1 mg PO DAILY #14 tablet 06/16/19 Ibuprofen [Motrin 800 mg Tablet] 800 mg PO TIDP PRN #18 tablet 06/16/19 Oxycodone HCl [Oxycodone HCl 10 MG Tablet] 10 mg PO Q6HP PRN #10 tablet 06/16/19 Thiamine HCl [Thiamine 100 mg Tablet] 100 mg PO DAILY #14 tablet 06/16/19 History of Present Illiness History of Present Illness: CRISTAL FIELD is a 43 year old female who presented to the emergency room with a one-week history of swelling and pain in her right upper extremity. She admits that a week ago she developed an area of redness, pain and swelling on her right wrist at a recent heroin injection site. The redness, pain and swelling have gradually increased to involve her right hand, wrist and distal forearm. She describes the pain as a constant throbbing pressure in her right wrist and hand without radiation. The pain is worsened by attempted use of the hand and having the hand in a dependent position. The pain is partially reliev ed by elevation of the hand and wrist. Associated with the increased swelling she has noted subjective fever with chills for the last 2 days. She also notes an accompanying hoarseness with laryngitis and a nonproductive cough with sharp chest pains over the last 24 hours. She denies other associated or accompanying signs and symptoms. She admits prior similar episodes due to infection of heroi n injection sites. She has not identified any additional aggravating or ameliorating factors for her right upper extremity pain. The emergency room she was found to have an abscess of the right wrist which was incised and drained. Patient was started on IV antibiotics, after cultures were obtained, and was subsequently admitted to the hospital for further evaluation and treatment. Physical Exam Vital Signs: Temp Pulse Resp BP Pulse Ox 98.4 F 77 18 108/67 99 06/16/19 07:44 06/16/19 07:44 06/16/19 00:09 06/16/19 07:44 06/16/19 07:44 Intake & Output 06/15/19 06/16/19 06/17/19 06:59 06:59 06:59 Intake Total 2626 2048 Output Total 170 Balance 2456 2048 Weight 74.1 kg 72.5 kg General appearance: PRESENT: no acute distress, cooperative Respiratory exam: PRESENT: clear to auscultation serena Cardiovascular exam: PRESENT: +S1, +S2 GI/Abdominal exam: PRESENT: normal bowel sounds, soft. ABSENT: tenderness Musculoskeletal exam: PRESENT: other - Right hand with Salem drain and erythema and swelling. Results Laboratory Results: WBC 11.5 10^3/uL (4.0-10.5) H 06/16/19 10:09 RBC 4.72 10^6/uL (3.72-5.28) 06/16/19 10:09 Hgb 13.0 g/dL (12.0-15.5) 06/16/19 10:09 Hct 39.7 % (36.0-47.0) 06/16/19 10:09 MCV 84 fl (80-97) 06/16/19 10:09 MCH 27.4 pg (27.0-33.4) 06/16/19 10:09 MCHC 32.6 g/dL (32.0-36.0) 06/16/19 10:09 RDW 14.7 % (11.5-14.0) H 06/16/19 10:09 Plt Count 516 10^3/uL (150-450) H 06/16/19 10:09 Lymph % (Auto) 21.6 % (13-45) 06/16/19 10:09 Dickson % (Auto) 8.3 % (3-13) 06/16/19 10:09 Eos % (Auto) 1.6 % (0-6) 06/16/19 10:09 Baso % (Auto) 0.4 % (0-2) 06/16/19 10:09 Absolute Neuts (auto) 7.8 10^3/uL (1.7-8.2) 06/16/19 10:09 Absolute Lymphs (auto) 2.5 10^3/uL (0.5-4.7) 06/16/19 10:09 Absolute Monos (auto) 1.0 10^3/uL (0.1-1.4) 06/16/19 10:09 Absolute Eos (auto) 0.2 10^3/uL (0.0-0.6) 06/16/19 10:09 Absolute Basos (auto) 0.0 10^3/uL (0.0-0.2) 06/16/19 10:09 Seg Neutrophils % 68.1 % (42-78) 06/16/19 10:09 Sodium 138.3 mmol/L (137-145) 06/16/19 10:09 Potassium 4.7 mmol/L (3.6-5.0) 06/16/19 10:09 Chloride 103 mmol/L (98-107) 06/16/19 10:09 Carbon Dioxide 27 mmol/L (22-30) 06/16/19 10:09 Anion Gap 8 (5-19) 06/16/19 10:09 BUN 7 mg/dL (7-20) 06/16/19 10:09 Creatinine 0.58 mg/dL (0.52-1.25) 06/16/19 10:09 Est GFR ( Amer) > 60 (>60) 06/16/19 10:09 Est GFR (MDRD) Non-Af > 60 (>60) 06/16/19 10:09 Glucose 87 mg/dL (75-110) 06/16/19 10:09 Lactic Acid (Sepsis) 0.6 mmol/L (0.7-2.1) L 06/12/19 18:13 Calcium 9.2 mg/dL (8.4-10.2) 06/16/19 10:09 Magnesium 1.9 mg/dL (1.6-2.3) 06/15/19 03:46 Total Bilirubin 0.2 mg/dL (0.2-1.3) 06/15/19 03:46 Direct Bilirubin 0.1 mg/dL (0.0-0.4) 06/15/19 03:46 Neonat Total Bilirubin Not Reportable 06/15/19 03:46 Neonat Direct Bilirubin Not Reportable 06/15/19 03:46 Neonat Indirect Bili Not Reportable 06/15/19 03:46 AST 20 U/L (14-36) 06/15/19 03:46 ALT 14 U/L (<35) 06/15/19 03:46 Alkaline Phosphatase 85 U/L (38-126) 06/15/19 03:46 Troponin I < 0.012 ng/mL 06/12/19 18:13 Total Protein 6.3 g/dL (6.3-8.2) 06/15/19 03:46 Albumin 2.9 g/dL (3.5-5.0) L 06/15/19 03:46 Serum HCG, Qual NEGATIVE (NEGATIVE) 06/12/19 18:13 Time Trough Drawn 0618 06/14/19 06:18 Vancomycin Trough 12.7 ug/mL (5.0-20.0) 06/14/19 06:18 Urine Opiates Screen UNCONFIRMED POSITIVE 06/14/19 10:30 Urine Methadone Screen NEGATIVE 06/14/19 10:30 Ur Barbiturates Screen NEGATIVE 06/14/19 10:30 Ur Phencyclidine Scrn NEGATIVE 06/14/19 10:30 Ur Amphetamines Screen NEGATIVE 06/14/19 10:30 U Benzodiazepines Scrn NEGATIVE 06/14/19 10:30 Urine Cocaine Screen NEGATIVE 06/14/19 10:30 U Marijuana (THC) Screen NEGATIVE 06/14/19 10:30 06/12/19 18:13 Troponin I < 0.012 Impressions: Hand X-Ray 06/12/19 17:05 IMPRESSION: Diffuse soft tissue swelling without underlying osseous injury or demonstrated retained radiopaque foreign body. Chest X-Ray 06/12/19 17:42 IMPRESSION: NO ACUTE RADIOGRAPHIC FINDING IN THE CHEST. Plan Time Spent: Greater than 30 Minutes Stroke Is this a Stroke Patient?: No Acute Heart Failure - Is this a Heart Failure Patient?: No
[2019-06-16 12:48] VITALS: BP 120/70
== END 2019-06-16 13:07 | disposition home or self-care (01) | DRG 857 ==
LOC: ER 16:56 → EH 20:12 → 5 20:54
PROVIDERS: ADMIT Emergency Medicine; ATTEND Emergency Medicine
PROC: 0J9G3ZX Drainage of Right Lower Arm Subcutaneous Tissue and Fascia, Percutaneous Approach, Diagnostic (ICD-10-PCS; 2019-06-11)
PROC: 3E0234Z Introduction of Serum, Toxoid and Vaccine into Muscle, Percutaneous Approach (ICD-10-PCS; 2019-06-12)
PROC: 0JBG0ZZ Excision of Right Lower Arm Subcutaneous Tissue and Fascia, Open Approach (ICD-10-PCS; 2019-06-14)
PROC: 05B Upper Veins, Excision (ICD-10-PCS; 2019-06-14)
PROC: 0JBJ0ZZ Excision of Right Hand Subcutaneous Tissue and Fascia, Open Approach (ICD-10-PCS; principal; 2019-06-14 14:00)
DX: T80.29XA Infection following other infusion, transfusion and therapeutic injection, initial encounter (principal); L02.413 Cutaneous abscess of right upper limb; L03.113 Cellulitis of right upper limb; F11.10 Opioid abuse, uncomplicated; J06.9 Acute upper respiratory infection, unspecified; F17.210 Nicotine dependence, cigarettes, uncomplicated; B95.4 Other streptococcus as the cause of diseases classified elsewhere; F15.10 Other stimulant abuse, uncomplicated; F41.9 Anxiety disorder, unspecified; R07.89 Other chest pain; B19.20 Unspecified viral hepatitis C without hepatic coma; X58.XXXA Exposure to other specified factors, initial encounter; Z60.2 Problems related to living alone; Z23 Encounter for immunization; Z88.3 Allergy status to other anti-infective agents; Z88.0 Allergy status to penicillin
CPT/HCPCS: 01850; 36415; 71045; 80048; 80053; 80202; 80307; 82565; 83605; 83735; 84484; 84703; 85025; 85027; 87040; 87070; 87075; 87077; 87205; 90471; 90715; 93005; 93010; 96365; 96375; 99284; A6266; J0696; J1100; J1170; J2060; J2185; J2250; J2270; J2405; J2704; J3010; J3370; J3490; J7060

== ENCOUNTER 2019-06-22 19:11 | Emergency (ER) | payer SELFPAY ==
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
[2019-06-22 21:29] LABS: APPEARANCE,URINE CLEAR; BILIRUBIN,URINE NEGATIVE (NEGATIVE); COLOR,URINE YELLOW; GLUCOSE, URINE NEGATIVE (NEGATIVE); KETONES,URINE NEGATIVE (NEGATIVE); PROTEIN,URINE NEGATIVE (NEGATIVE); URINE SPECIFIC GRAVITY 1.024; UROBILINOGEN,URINE NEGATIVE mg/dL (<2.0)
--- NOTE | 2019-06-22 21:39 | RADIOLOGY REPORT (SQ) ---
EXAM DESCRIPTION: Right hand RadLex: XR HAND 3 OR MORE VIEWS Views: 3 CLINICAL HISTORY: 43 years Female, wound infection COMPARISON: 06/12/2019 FINDINGS: A surgical drain is been placed in the dorsal soft tissues, overlying the carpus from the 1st CMC joint to the distal fibular head. Soft tissue swelling has improved. There is no significant soft tissue air. No lytic bone changes or acute periosteal reaction. IMPRESSION: 1. Interval placement of surgical drain since 06/12/2019. Soft tissue edema has improved but not completely resolved. 2. No radiographic evidence for osteomyelitis.
[2019-06-22 21:46] LABS: URINE BARBITURATES SCREEN NEGATIVE; URINE BENZODIAZEPINES SCREEN NEGATIVE; URINE COCAINE SCREEN NEGATIVE; URINE MARIJUANA (THC) SCREEN NEGATIVE; URINE METHADONE SCREEN NEGATIVE; URINE PHENCYCLIDINE SCREEN NEGATIVE
[2019-06-22 21:47] LABS: URINE AMPHETAMINES SCREEN UNCONFIRMED POSITIVE
[2019-06-22 23:17] LABS: ABSOLUTE BASOPHILS # (AUTO) 0.1 10^3/uL (0.0-0.2); ABSOLUTE EOSINOPHILS # (AUTO) 0.2 10^3/uL (0.0-0.6); ABSOLUTE LYMPHOCYTES (AUTO) 2.6 10^3/uL (0.5-4.7); ABSOLUTE MONOCYTES (AUTO) 0.7 10^3/uL (0.1-1.4); BASOPHILS % (AUTO) 0.7 % (0-2); EOSINOPHILS % (AUTO) 1.5 % (0-6); HEMATOCRIT 36.7 % (36.0-47.0); HEMOGLOBIN 12.2 g/dL (12.0-15.5); LYMPHOCYTES % (AUTO) 22.6 % (13-45); MEAN CORPUSCULAR HGB CONC 33.3 g/dL (32.0-36.0); MEAN CORPUSCULAR VOLUME 84 fl (80-97); MONOCYTES % (AUTO) 6.2 % (3-13); PLATELET COUNT 419 10^3/uL (150-450); RED BLOOD COUNT 4.36 10^6/uL (3.72-5.28); RED CELL DISTRIBUTION WIDTH 14.6 % (11.5-14.0); TOTAL CELLS COUNTED % (AUTO) 100 %; WHITE BLOOD COUNT 11.6 10^3/uL (4.0-10.5)
[2019-06-22 23:35] LABS: ALBUMIN 4.1 g/dL (3.5-5.0); ALKALINE PHOSPHATASE 93 U/L (38-126); ANION GAP 13 (5-19); ASPARTATE AMINO TRANSFERASE 29 U/L (14-36); BILIRUBIN,DIRECT 0.2 mg/dL (0.0-0.4); BILIRUBIN,TOTAL 0.5 mg/dL (0.2-1.3); BLOOD UREA NITROGEN 13 mg/dL (7-20); CALCIUM 9.1 mg/dL (8.4-10.2); CARBON DIOXIDE 27 mmol/L (22-30); CHLORIDE 100 mmol/L (98-107); GLUCOSE 76 mg/dL (75-110); POTASSIUM 4.1 mmol/L (3.6-5.0); TOTAL PROTEIN 8.2 g/dL (6.3-8.2)
--- NOTE | 2019-06-23 00:19 | ER Document Report ---
ED General - General Chief Complaint: Wound Recheck Stated Complaint: REMOVE PACKING Time Seen by Provider: 06/22/19 20:40 Mode of Arrival: Ambulatory TRAVEL OUTSIDE OF THE [place] IN LAST 30 DAYS: No - HPI Notes: Patient is a 43-year-old female who presents emergency department for evaluation. She was recently admitted and discharged from the hospital with a diagnosis of an abscess/cellulitis of the right wrist. She was sent home with a Brittni drain in place, on antibiotics. She states she is vomiting up all of the antibiotics. She believes she only kept 2 doses down. She was post to follow-up with the surgical clinic yesterday, and states she did not have a ride, so she presents here instead. She states she had a fever of 102 yesterday. - Related Data Allergies/Adverse Reactions: ciprofloxacin [From Cipro HC] Allergy (Verified 06/22/19 20:32) hydrocortisone [From Cipro HC] Allergy (Verified 06/22/19 20:32) Penicillins Allergy (Verified 06/22/19 20:32) Past Medical History - General Information source: Patient - Social History Smoking Status: Current Every Day Smoker Drug Abuse: Heroin Family History: None, Malignancy. denies: CAD, DM, Hypertension Patient has suicidal ideation: No Patient has homicidal ideation: No - Past Medical History Cardiac Medical History: Denies: Hx Coronary Artery Disease, Hx Hypertension Pulmonary Medical History: Reports: Hx Pneumonia Denies: Hx Asthma, Hx COPD Neurological Medical History: Denies: Hx Seizures Endocrine Medical History: Denies: Hx Diabetes Mellitus Type 1, Hx Diabetes Mellitus Type 2, Hx Hyperthyroidism, Hx Hypothyroidism Renal/ Medical History: Denies: Hx Peritoneal Dialysis GI Medical History: Denies: Hx Cirrhosis, Hx Hepatitis Musculoskeletal Medical History: Denies Hx Arthritis, Denies Hx Gout Skin Medical History: Denies Hx Eczema, Denies Hx Psoriasis Psychiatric Medical History: Reports: Hx Anxiety Infectious Medical History: Denies: Hx Hepatitis Past Surgical History: Reports: Hx Tubal Ligation Review of Systems - Review of Systems Constitutional: See HPI EENT: No symptoms reported Cardiovascular: No symptoms reported Respiratory: No symptoms reported Gastrointestinal: No symptoms reported Genitourinary: No symptoms reported Musculoskeletal: See HPI Skin: No symptoms reported Neurological/Psychological: No symptoms reported Physical Exam - Vital signs Vitals: Temp Pulse Resp BP Pulse Ox 98.1 F 56 L 16 142/68 H 100 12/10/19 20:20 06/22/19 20:20 06/22/19 20:20 06/22/19 20:20 06/22/19 20:20 - Notes Notes: Vital signs reviewed, please refer to chart. Head is normocephalic, atraumatic. Pupils equal round, reactive to light. Neck is supple without meningismus. Heart is regular rate and rhythm. Lungs are clear to auscultation bilaterally. Abdomen is soft, nontender, normoactive bowel sounds throughout. Extremities without cyanosis, clubbing. Posterior calves are nontender. Peripheral pulses are equal. Examination of the right hand yields a moderate amount of edema with some erythema overlying the dorsum of the right hand. She has a Brittni drain in place, significant crusting noted at both entrance sites. Patient has severe pain with even the slightest touch, yells out in pain with any attempted active range of motion of the fingers or thumb. Capillary refill is brisk, sensation is intact. Course - Re-evaluation Re-evalutation: 06/23/19 00:18 Patient presents emergency department for evaluation. She states she has been vomiting up her antibiotics, has a known cellulitis, and had wound debridement. She did not follow-up with surgery. She does have a mild leukocytosis, and a positive drug screen, but otherwise her lab work is largely unremarkable. I reviewed her cultures from her prior stay, no significant bacterial growth was noted. I will again give her a dose of IV antibiotics and consult surgery to come and evaluate her hand at this time. 06/23/19 02:05 Dr. Michele did come down and see the patient. Please see his separate consult note. At this point, he does not feel comfortable removing the drain. He asks that her nausea be treated to help her keep down the antibiotics. She has only a very minimal leukocytosis. Her soft tissue swelling has improved. We will send her home with a few more days of Lillian Figueroa, and she is to follow-up with the surgical clinic on Friday with Dr. Michele. She voiced understanding to the importance of this, especially given the fact that she is right-hand dominant. She is to return to the ED with worsening. - Vital Signs Vital signs: Temp Pulse Resp BP Pulse Ox 98.1 F 56 L 16 142/68 H 100 06/22/19 20:32 06/22/19 20:20 06/22/19 20:32 06/22/19 20:20 06/22/19 20:32 - Laboratory Result Diagrams: 06/22/19 23:00 06/22/19 23:00 Laboratory results interpreted by me: 06/22/19 23:00 WBC 11.6 H RDW 14.6 H - Diagnostic Test Radiology reviewed: Reports reviewed Radiology results interpreted by me: 06/23/19 00:19 Hand X-Ray 06/22/19 20:42 IMPRESSION: 1. Interval placement of surgical drain since 06/12/2019. Soft tissue edema has improved but not completely resolved. 2. No radiographic evidence for osteomyelitis. Discharge - Discharge Clinical Impression: Cellulitis of right wrist Condition: Stable Disposition: HOME, SELF-CARE Instructions: Cellulitis ([facility]) Additional Instructions: Please take antibiotic as prescribed until gone. Use Zofran as needed for nausea. Follow-up with the surgical clinic on Friday with Dr. Michele as discussed. Return to the ED with worsening or new concerning symptoms of any sort.
[2019-06-23] MEDS ORDERED: CEFTRIAXONE 1 GM/D5W RTU 1 GM/50 ML RTUPB IV ONE (00:20)
[2019-06-23] MEDS ORDERED: KETOROLAC TROMETHAMINE INJ/PF 30 MG/1 ML SDV IV ONE (00:20)
--- NOTE | 2019-06-23 01:49 | PDOC CONSULTATION ---
Consultation Consult Date: 06/23/19 Provider Consulted: BRIAN PABLO Consult reason:: hand abscess History of Present Illness History of Present Illness: CRISTAL FIELD is a 43 year old female who presents emergency department for evaluation. She was recently admitted and discharged from the hospital with a diagnosis of an abscess/cellulitis of the right wrist. She was sent home with a [place] drain in place, on antibiotics. She states she is vomiting up all of the antibiotics. She believes she only kept 2 doses down. She was post to follow-up with the surgical clinic yesterday, and states she did not have a ride, so she presents here instead. She states she had a fever of 102 yesterday.pt states she has used up her pain meds she was discharged with and admits to recent ivd injections. she is c/o nausea hand xray done in er shows decrease in edema. pt quickly become verbally abusive when asked why she did not come to her post op appoint 2 days ago Past Medical History Cardiac Medical History: Denies: Coronary Artery Disease, Hypertension Pulmonary Medical History: Reports: Pneumonia Denies: Asthma, Chronic Obstructive Pulmonary Disease (COPD) Neurological Medical History: Denies: Seizures Endocrine Medical History: Denies: Diabetes Mellitus Type 1, Diabetes Mellitus Type 2, Hyperthyroidism, Hypothyroidism GI Medical History: Denies: Cirrhosis, Hepatitis Musculoskeltal Medical History: Denies: Arthritis, Gout Skin Medical History: Denies: Eczema, Psoriasis Hematology: Denies: Anemia, Bleeding Tendencies Past Surgical History Past Surgical History: Reports: Tubal Ligation, Other - incision and drainage of rt hand abscess. Social History Smoking Status: Current Every Day Smoker Frequency of Alcohol Use: None Hx Recreational Drug Use: Yes Drugs: Heroin Hx Prescription Drug Abuse: No Family History Family History: None, Malignancy. denies: CAD, DM, Hypertension Parental Family History Reviewed: No Children Family History Reviewed: NA Sibling(s) Family History Reviewed.: NA Medication/Allergy Home Medications: Cephalexin Monohydrate [Keflex 500 mg Capsule] 500 mg PO Q6H 7 Days capsule 06/16/19 Docusate Sodium [Colace 100 mg Capsule] 100 mg PO BID #14 capsule 06/16/19 Folic Acid [Folvite 1 mg Tablet] 1 mg PO DAILY #14 tablet 06/16/19 Ibuprofen [Motrin 800 mg Tablet] 800 mg PO TIDP PRN #18 tablet 06/16/19 Oxycodone HCl [Oxycodone HCl 10 MG Tablet] 10 mg PO Q6HP PRN #10 tablet 06/16/19 Thiamine HCl [Thiamine 100 mg Tablet] 100 mg PO DAILY #14 tablet 06/16/19 Allergies/Adverse Reactions: ciprofloxacin [From Cipro HC] Allergy (Verified 06/22/19 20:32) hydrocortisone [From Cipro HC] Allergy (Verified 06/22/19 20:32) Penicillins Allergy (Verified 06/22/19 20:32) Review of Systems Constitutional: PRESENT: weakness Eyes: ABSENT: as per HPI, visual disturbances, other Nose, Mouth, and Throat: ABSENT: as per HPI, headache(s), mouth pain, sore throat, vertigo, other Breasts: ABSENT: as per HPI, other Gastrointestinal: PRESENT: nausea Genitourinary: ABSENT: as per HPI, difficulty urinating, dysuria, hematuria, nocturia, other Musculoskeletal: PRESENT: as per HPI Integumentary: PRESENT: as per HPI Neurological: ABSENT: as per HPI, abnormal gait, abnormal movements, abnormal speech, confusion, convulsions, dizziness, focal weakness, frequent falls, lack of coordination, memory loss, numbness, paresthesias, restless legs, syncope, tingling, tremor(s), vertigo, weakness, other Psychiatric: ABSENT: as per HPI, anxiety, depression, hallucinations, homidical ideation, suicidal ideation, other Endocrine: ABSENT: as per HPI, cold intolerance, flushing, heat intolerance, menstrual abnormalities, polydipsia, polyphagia, polyuria, other Hematologic/Lymphatic: ABSENT: as per HPI, easy bleeding, easy bruising, lymphadenopathy, other Allergic/Immunologic: ABSENT: as per HPI, seasonal rhinorrhea, other Physical Exam Vital Signs: Temp Pulse Resp BP Pulse Ox 98.1 F 56 L 16 142/68 H 100 06/22/19 20:32 06/22/19 20:20 06/22/19 20:32 06/22/19 20:20 06/22/19 20:32 Intake & Output 06/21/19 06/22/19 06/23/19 06:59 06:59 06:59 Weight 69.7 kg General appearance: PRESENT: mild distress Head exam: PRESENT: normocephalic Eye exam: PRESENT: EOMI Ear exam: PRESENT: normal external ear exam Mouth exam: PRESENT: moist Teeth exam: PRESENT: edentulous Neck exam: PRESENT: full ROM Respiratory exam: PRESENT: clear to auscultation serena Pulses: PRESENT: normal radial pulses Vascular exam: PRESENT: normal capillary refill GI/Abdominal exam: PRESENT: soft Rectal exam: PRESENT: deferred Extremities exam: PRESENT: other - dorsum of rt had has a gurwinder drain with enterence and exit site there is crusty exudate at both sites with min drain age. pt able to extend and flex hand Neurological exam: PRESENT: alert, awake Psychiatric exam: PRESENT: unusual affect - pt verbally abusive, intermittently crying, threatened to pull out her iv and leave when asked why she could not make her outpt visit. Skin exam: PRESENT: dry Results Laboratory Results: 06/22/19 23:00 06/22/19 23:00 06/22/19 06/22/19 06/22/19 21:02 23:00 23:00 WBC 11.6 H RBC 4.36 Hgb 12.2 Hct 36.7 MCV 84 MCH 28.0 MCHC 33.3 RDW 14.6 H Plt Count 419 Seg Neutrophils % 69.0 Sodium 139.5 Potassium 4.1 Chloride 100 Carbon Dioxide 27 Anion Gap 13 BUN 13 Creatinine 0.67 Est GFR ( Amer) > 60 Glucose 76 Calcium 9.1 Total Bilirubin 0.5 AST 29 Alkaline Phosphatase 93 Total Protein 8.2 Albumin 4.1 Urine Color YELLOW Urine Appearance CLEAR Urine pH 5.0 Ur Specific [place] 1.024 Urine Protein NEGATIVE Urine Glucose (UA) NEGATIVE Urine Ketones NEGATIVE Urine Blood NEGATIVE Urine RBC (Auto) 2 Impressions: Hand X-Ray 06/22/19 20:42 IMPRESSION: 1. Interval placement of surgical drain since 06/12/2019. Soft tissue edema has improved but not completely resolved. 2. No radiographic evidence for osteomyelitis. Assessment & Plan - Plan Summary Plan Summary: impression- rt hand abscess seconday to ivda pt ;missed her post op appoint for drain removal here due to nausea to her abx, but able to hold down reg food recommend: drain manipulated to allow for better drainage pt instructed to wash hand with shower head bid to avoid build up of exudate for better drainage around the gurwinder. pt should be given zofran script to help her hold down the keflex. pt offered admission for iv abx howver wants to try po zofran instead.
[2019-06-23] MEDS ORDERED: ONDANSETRON ODT 4 MG TAB (6 TAB/ER DISP) PO PRN (02:06)
[2019-06-23 02:57] VITALS: BP 138/69
== END 2019-06-23 02:50 | disposition home or self-care (01) ==
LOC: EEVIPCON 19:11 → ER 19:11
DX: L03.113 Cellulitis of right upper limb (principal); L02.413 Cutaneous abscess of right upper limb; F17.200 Nicotine dependence, unspecified, uncomplicated; F11.10 Opioid abuse, uncomplicated
CPT/HCPCS: 99283; 96372; 96365; 36415; 87040; 85025; 80053; 81001; 80307; 73130; J1885; J0696

== ENCOUNTER 2020-01-06 12:39 | Emergency (ER) | payer SELFPAY ==
[2020-01-06] MEDS ORDERED: ACETAMINOPHEN 325 MG TABLET PO ONE (13:18)
--- NOTE | 2020-01-06 13:21 | ER Document Report ---
ED General - General Chief Complaint: Fever Stated Complaint: URINARY ISSUE Notes: Patient is a 44-year-old white female with a history of heroin abuse who presents to the emergency department the chief complaint of fever and dysuria for the past week. She states it began about the same time. She reports burning with urination and a cloudy/different color urine than normal. She states this feels exactly like her prior UTIs. She states have not improved nor worsened over the past week. Denies any provocative or palliative factors. No radiation of pain. She also adds that she was injecting some heroin in her neck recently. She states there was an area of swelling that she thought might be an abscess formation but she states that has since resolved. She denies ever having any difficulty breathing or trouble with secretions. Denies any tongue or throat swelling. No chest pain or shortness of breath. Admits that she did inject some heroin into the left anterior neck this morning without any complication. Patient denies any cough or coryza. No recent travel or known sick contacts. TRAVEL OUTSIDE OF THE [place] IN LAST 30 DAYS: No - Related Data Allergies/Adverse Reactions: ciprofloxacin [From Cipro HC] Allergy (Verified 06/22/19 20:32) hydrocortisone [From Cipro HC] Allergy (Verified 06/22/19 20:32) Penicillins Allergy (Verified 06/22/19 20:32) Past Medical History - Social History Smoking Status: Current Every Day Smoker Drug Abuse: Heroin Family History: None, Malignancy. denies: CAD, DM, Hypertension - Past Medical History Cardiac Medical History: Denies: Hx Coronary Artery Disease, Hx Hypertension Pulmonary Medical History: Reports: Hx Pneumonia Denies: Hx Asthma, Hx COPD Neurological Medical History: Denies: Hx Seizures Endocrine Medical History: Denies: Hx Diabetes Mellitus Type 1, Hx Diabetes Mellitus Type 2, Hx Hyperthyroidism, Hx Hypothyroidism Renal/ Medical History: Denies: Hx Peritoneal Dialysis GI Medical History: Denies: Hx Cirrhosis, Hx Hepatitis Musculoskeletal Medical History: Denies Hx Arthritis, Denies Hx Gout Skin Medical History: Denies Hx Eczema, Denies Hx Psoriasis Psychiatric Medical History: Reports: Hx Anxiety Infectious Medical History: Denies: Hx Hepatitis Past Surgical History: Reports: Hx Tubal Ligation, Other - incision and drainage of rt hand abscess. Review of Systems - Review of Systems Constitutional: Fever Genitourinary: Burning, Dysuria -: Yes All other systems reviewed and negative Physical Exam - Vital signs Vitals: Temp Pulse Resp BP Pulse Ox 101.7 F H 94 18 122/70 96 01/06/20 12:43 01/06/20 12:43 01/06/20 12:43 01/06/20 12:43 01/06/20 12:43 - General General appearance: Appears well, Alert In distress: None - HEENT Neck: Normal, Supple, Other - No masses, erythema or tenderness to palpation of the neck.. No: Lymphadenopathy, Neck mass, Thyromegally - Respiratory Respiratory status: No respiratory distress Chest status: Nontender Breath sounds: Normal Chest palpation: Normal - Cardiovascular Rhythm: Regular Heart sounds: Normal auscultation - Abdominal Inspection: Normal Distension: No distension Bowel sounds: Normal Tenderness: Nontender Organomegaly: No organomegaly - Back Back: No: CVA tenderness - Neurological Neuro grossly intact: Yes Cognition: Normal Orientation: AAOx4 Freedom Coma Scale Eye Opening: Spontaneous Freedom Coma Scale Verbal: Oriented Freedom Coma Scale Motor: Obeys Commands Astrid Coma Scale Total: 15 Speech: Normal Sensory: Normal - Psychological Associated symptoms: Normal affect, Normal mood - Skin Skin Temperature: Warm Skin Moisture: Dry Skin Color: Normal Course - Re-evaluation Re-evalutation: 01/06/20 18:34 Reevaluation at this time. Patient is resting comfortably in the room. She is nontoxic in appearance. She is afebrile. She is got an elevated white count at nearly 20,000. Source of infection in the urine. She was given 2 g of Rocephin as well as 2 L of normal saline. Discussed with her options of admission versus discharge. We discussed this at length and agreed given her clinical presentation she is appropriate to be treated with outpatient antibiotic regimen at this time. We did discuss however that she should have a low threshold for return to the emergency department. We discussed that she should be followed up outpatient in the next day or 2 for reevaluation and we discussed that she should return here or any ER immediately with any new, persistent or worsening symptoms. She verbalized understood and agreed. - Vital Signs Vital signs: Temp Pulse Resp BP Pulse Ox 98.4 F 94 18 122/70 96 01/06/20 15:35 01/06/20 12:43 01/06/20 12:43 01/06/20 12:43 01/06/20 12:43 - Laboratory Result Diagrams: 01/06/20 14:31 01/06/20 14:31 Laboratory results interpreted by me: 01/06/20 01/06/20 01/06/20 14:31 14:31 15:43 WBC 19.7 H Hgb 11.8 L Hct 35.7 L RDW 14.5 H Lymph % (Auto) 6.7 L Absolute Neuts (auto) 16.4 H Absolute Monos (auto) 2.0 H Seg Neutrophils % 82.9 H Sodium 132.9 L Potassium 3.5 L Urine Protein 100 H Urine Blood SMALL H Urine Urobilinogen 4.0 H Leukocyte Esterase Rfl LARGE H Discharge - Discharge Clinical Impression: Leukocytosis Qualifiers: Leukocytosis type: unspecified Qualified Code(s): D72.829 - Elevated white blood cell count, unspecified UTI (urinary tract infection) Qualifiers: Urinary tract infection type: site unspecified Hematuria presence: with hematuria Qualified Code(s): N39.0 - Urinary tract infection, site not specified; R31.9 - Hematuria, unspecified Condition: Stable Disposition: HOME, SELF-CARE Instructions: Cephalexin ([facility]), Urinary Tract Infection ([facility]) Additional Instructions: Please take your antibiotics as prescribed. Please drink plenty of clear fluids. As discussed please follow-up in the next day or 2 for reevaluation. Please return here or any ER immediately with any new, persistent or worsening symptoms. Prescriptions: Cephalexin Monohydrate [Keflex 500 mg Capsule] 500 mg PO Q6H 10 Days #40 capsule
[2020-01-06 14:52] LABS: ABSOLUTE BASOPHILS # (AUTO) 0.1 10^3/uL (0.0-0.2); ABSOLUTE LYMPHOCYTES (AUTO) 1.3 10^3/uL (0.5-4.7); ABSOLUTE NEUT (AUTO) 16.4 10^3/uL (1.7-8.2); BASOPHILS % (AUTO) 0.3 % (0-2); EOSINOPHILS % (AUTO) 0.1 % (0-6); HEMATOCRIT 35.7 % (36.0-47.0); HEMOGLOBIN 11.8 g/dL (12.0-15.5); LYMPHOCYTES % (AUTO) 6.7 % (13-45); MEAN CORPUSCULAR VOLUME 82 fl (80-97); PLATELET COUNT 370 10^3/uL (150-450); RED BLOOD COUNT 4.36 10^6/uL (3.72-5.28); RED CELL DISTRIBUTION WIDTH 14.5 % (11.5-14.0); SEGMENTED NEUTROPHILS % (AUTO) 82.9 % (42-78); TOTAL CELLS COUNTED % (AUTO) 100 %; WHITE BLOOD COUNT 19.7 10^3/uL (4.0-10.5)
[2020-01-06 15:12] LABS: ALBUMIN 3.6 g/dL (3.5-5.0); ALKALINE PHOSPHATASE 111 U/L (38-126); ANION GAP 8 (5-19); ASPARTATE AMINO TRANSFERASE 24 U/L (14-36); BILIRUBIN,DIRECT 0.1 mg/dL (0.0-0.4); BILIRUBIN,TOTAL 0.6 mg/dL (0.2-1.3); BLOOD UREA NITROGEN 14 mg/dL (7-20); CALCIUM 8.9 mg/dL (8.4-10.2); CARBON DIOXIDE 26 mmol/L (22-30); CHLORIDE 99 mmol/L (98-107); GLUCOSE 84 mg/dL (75-110); POTASSIUM 3.5 mmol/L (3.6-5.0); TOTAL PROTEIN 7.5 g/dL (6.3-8.2)
[2020-01-06 16:00] LABS: APPEARANCE,URINE CLOUDY; BILIRUBIN,URINE NEGATIVE (NEGATIVE); COLOR,URINE AMBER; GLUCOSE, URINE NEGATIVE (NEGATIVE); KETONES,URINE NEGATIVE (NEGATIVE); PROTEIN,URINE 100 mg/dL (NEGATIVE); URINE SPECIFIC GRAVITY 1.018
[2020-01-06] MEDS ORDERED: CEFTRIAXONE 2 GM/D5W RTU 2 GM/50 ML RTUPB IV ONE (16:18)
[2020-01-06] MEDS: NORMAL SALINE 1000 ML 1,000 ML IV PRN ×2 (17:01→18:01)
[2020-01-06 18:59] VITALS: BP 99/58
== END 2020-01-06 19:09 | disposition home or self-care (01) ==
LOC: ER 12:39 → EEVIPCON 12:39 → ER 19:09
DX: N39.0 Urinary tract infection, site not specified (principal); R31.9 Hematuria, unspecified; R50.9 Fever, unspecified; F17.200 Nicotine dependence, unspecified, uncomplicated; F11.10 Opioid abuse, uncomplicated
CPT/HCPCS: 99283; 96361; 96365; 36415; 87086; 84703; 85025; 87088; 80053; 81001; 87186; J7030; J0696

== ENCOUNTER 2020-02-20 16:44 | Emergency (ER) | payer SELFPAY ==
[2020-02-20 16:51] VITALS: BP 99/64
[2020-02-20] MEDS ORDERED: CLINDAMYCIN PHOSPHATE INJ 300 MG/2 ML SDV IM ONE (17:21)
--- NOTE | 2020-02-20 17:26 | ER Document Report ---
ED General - General Chief Complaint: Skin Problem Stated Complaint: SKIN SORES/RIGHT LEG Notes: Patient is a 44-year-old white female with a past medical history of heroin abuse who presents to the emergency department the chief complaint of multiple sores about the legs primarily the right lower leg began recently. She reports the areas are swollen and tender. No drainage. Surrounding erythema at each site. She does admit to reusing needles but only her own. Does not share needles. Has been injecting heroin but denies injecting in her legs. She denies any fever, chills, night sweats, chest pain or shortness of breath. Has been using topical creams [id number]. TRAVEL OUTSIDE OF THE [place] IN LAST 30 DAYS: No - Related Data Allergies/Adverse Reactions: ciprofloxacin [From Cipro HC] Allergy (Verified 02/20/20 17:13) hydrocortisone [From Cipro HC] Allergy (Verified 02/20/20 17:13) Penicillins Allergy (Verified 02/20/20 17:13) Past Medical History - Social History Smoking Status: Current Every Day Smoker Chew tobacco use (# tins/day): No Frequency of alcohol use: None Drug Abuse: Heroin Family History: None, Malignancy. denies: CAD, DM, Hypertension Patient has homicidal ideation: No - Past Medical History Cardiac Medical History: Denies: Hx Coronary Artery Disease, Hx Hypertension Pulmonary Medical History: Reports: Hx Pneumonia Denies: Hx Asthma, Hx COPD Neurological Medical History: Denies: Hx Seizures Endocrine Medical History: Denies: Hx Diabetes Mellitus Type 1, Hx Diabetes Mellitus Type 2, Hx Hyperthyroidism, Hx Hypothyroidism Renal/ Medical History: Denies: Hx Peritoneal Dialysis GI Medical History: Denies: Hx Cirrhosis, Hx Hepatitis Musculoskeletal Medical History: Denies Hx Arthritis, Denies Hx Gout Skin Medical History: Denies Hx Eczema, Denies Hx Psoriasis Psychiatric Medical History: Reports: Hx Anxiety Infectious Medical History: Denies: Hx Hepatitis Past Surgical History: Reports: Hx Tubal Ligation, Other - incision and drainage of rt hand abscess. Review of Systems - Review of Systems Constitutional: denies: Fever EENT: denies: Throat pain Cardiovascular: denies: Chest pain Respiratory: denies: Short of breath Gastrointestinal: denies: Abdominal pain Genitourinary: denies: Pain Female Genitourinary: denies: Vaginal discharge Musculoskeletal: denies: Neck pain Skin: Lesions Hematologic/Lymphatic: denies: Easy bleeding Neurological/Psychological: denies: Headaches Physical Exam - Vital signs Vitals: Temp Pulse Resp BP Pulse Ox 98.5 F 69 20 99/64 L 98 02/20/20 16:50 02/20/20 16:50 02/20/20 16:50 02/20/20 16:50 02/20/20 16:50 - General General appearance: Appears well, Alert In distress: None - Respiratory Respiratory status: No respiratory distress Chest status: Nontender Breath sounds: Normal Chest palpation: Normal - Cardiovascular Rhythm: Regular Heart sounds: Normal auscultation - Extremities General lower extremity: Other - Multiple satellite lesions lower extremities bilaterally, right is worse than left. Erythema surrounding the wound sites that are crusted. No drainage or abscess formations. 1+ pitting type edema to the right lower extremity. Tender to palpation. No proximal streaking or expanding cellulitis. - Neurological Neuro grossly intact: Yes Cognition: Normal Orientation: AAOx4 - Psychological Associated symptoms: Normal affect, Normal mood - Skin Skin Temperature: Warm Skin Moisture: Dry Skin Color: Normal, Other - no [place] lesions Course - Re-evaluation Re-evalutation: 02/20/20 17:27 Patient's history and physical consistent with an early cellulitis likely MRSA based. Will be started on clindamycin, injection given here sent home on p.o. Counseled her regarding the importance of outpatient follow-up in 48 hours for reevaluation. Advise she return here or any ER immediately with any new, persistent or worsening symptoms. She verbalized understood and agreed. - Vital Signs Vital signs: Temp Pulse Resp BP Pulse Ox 98.5 F 69 20 99/64 L 98 02/20/20 16:50 02/20/20 16:50 02/20/20 16:50 02/20/20 16:50 02/20/20 16:50 Discharge - Discharge Clinical Impression: Heroin abuse Cellulitis Qualifiers: Site of cellulitis: other site Qualified Code(s): L03.818 - Cellulitis of other sites Condition: Stable Disposition: HOME, SELF-CARE Instructions: Cellulitis ([facility]) Additional Instructions: Follow-up with your regular doctor in 2 to 3 days for reevaluation. Return here or any ER immediately with any new, persistent or worsening symptoms. Prescriptions: Clindamycin HCl 300 mg PO Q6 #39 capsule Referrals: [facility] [NO LOCAL MD] - Follow up as needed
== END 2020-02-20 17:30 | disposition home or self-care (01) ==
LOC: ER 16:44
DX: L03.90 Cellulitis, unspecified (principal); F11.10 Opioid abuse, uncomplicated; R60.0 Localized edema; F17.200 Nicotine dependence, unspecified, uncomplicated; Z88.1 Allergy status to other antibiotic agents; Z88.0 Allergy status to penicillin
CPT/HCPCS: 99283